=== PATIENT | female | born 1985 | race Caucasian/White ===

== ENCOUNTER 2016-12-22 16:19 | Outpatient (CLI) | payer MEDICAID ==
[2016-12-22 17:01] LABS: APPEARANCE,URINE SLIGHTLY-CLOUDY; BILIRUBIN,URINE NEGATIVE (NEGATIVE); GLUCOSE, URINE NEGATIVE (NEGATIVE); KETONES,URINE NEGATIVE (NEGATIVE); LEUKOCYTE ESTERASE,URINE TRACE (NEGATIVE); NITRITE,URINE NEGATIVE (NEGATIVE); PROTEIN,URINE NEGATIVE (NEGATIVE); URINE SPECIFIC GRAVITY 1.015; UROBILINOGEN,URINE NEGATIVE mg/dL (<2.0)
[2016-12-22 17:14] LABS: URINE BARBITURATES SCREEN NEGATIVE; URINE METHADONE SCREEN NEGATIVE; URINE OPIATES LOW NEGATIVE; URINE PHENCYCLIDINE SCREEN NEGATIVE
[2016-12-22] MEDS ORDERED: RINGERS SOLUTION,LACTATED 1,000 ML IV ONE (17:35)
--- NOTE | 2016-12-22 21:14 | L&D Discharge Summary ---
OB Discharge Summary Datetime Report Generated by CPN: 12/22/2016 21:14 DISCHARGE DIAGNOSIS Diagnosis/Symptoms: Round Ligament Syndrome Number of Babies in Womb: 1 Parity: 0 DIET/ACTIVITY/RESTRICTIONS Diet: Regular Activity: Normal Activity TEACHING/INSTRUCTIONS/REFERRALS Instructions Given To: Patient/family Instructions Understood: Patient Verbalized Understanding; Support Person Verbalized Understanding Referrals: None Educational Materials- Other: round ligament pain DISCHARGE INFORMATION Discharged AMA: No Discharge Date/Time: 12/22/2016 18:12 Discharged To: Home Discharge Provider Name: Dr Montague Accompanied By: family Discharge Method: Ambulatory Condition: Stable FOLLOW UP INFORMATION Follow Up With: [facility] Follow Up On: As Scheduled Follow Up Phone Number: [facility] -
--- NOTE | 2016-12-23 22:50 | Antepartum Discharge Summary ---
Antepartum DC Datetime Report Generated by CPN: 12/23/2016 22:45 DIET/ACTIVITY/RESTRICTIONS Diet: Regular (12/22/2016 18:11:Cate Elmore RN) Activity: Normal Activity (12/22/2016 18:11:Cate Elmore RN) TEACHING/INSTRUCTIONS/REFERRALS Instructions Given To: Patient/family (12/22/2016 18:11:Cate Elmore RN) Instructions Understood: Patient Verbalized Understanding; Support Person Verbalized Understanding (12/22/2016 18:11:Cate Elmore RN) Referrals: None (12/22/2016 18:11:Cate Elmore RN) Educational Materials- Other: round ligament pain (12/22/2016 18:11:Cate Elmore RN) DISCHARGE INFORMATION Discharged AMA: No (12/22/2016 18:11:Cate Elmore RN) Discharge Date/Time: 12/22/2016 18:12 (12/22/2016 18:11:Cate Elmore RN) Discharged To: Home (12/22/2016 18:11:Cate Elmore RN) Discharge Provider Name: Dr Montague (12/22/2016 18:11:Cate Elmore RN) Accompanied By: family (12/22/2016 18:11:Cate Elmore RN) Discharge Method: Ambulatory (12/22/2016 18:11:Ctae Elmore RN) Condition: Stable (12/22/2016 18:11:Cate Elmore RN) FOLLOW UP INFORMATION Follow Up With: [facility] (12/22/2016 18:11:Cate Elmore RN) Follow Up On: As Scheduled (12/22/2016 18:11:Cate Elmore RN) Follow Up Phone Number: [facility] - (12/22/2016 18:11:Cate Elmore RN)
--- NOTE | 2016-12-23 22:50 | L&D General Admission ---
General Admit Datetime Report Generated by CPN: 12/23/2016 22:45 INFORMATION Patient Age: 31 (12/22/2016 16:19:QS system process) EDC: 05/07/2017 00:00 (12/22/2016 16:25:Cate Elmore RN) : 1 (12/22/2016 16:25:Cate Elmore RN) Para: 0 (12/22/2016 16:25:Cate Elmore RN) Term: 0 (12/22/2016 16:25:Cate Elmore RN) : 0 (12/22/2016 16:25:Cate Elmore RN) Spontaneous Abortions: 0 (12/22/2016 16:25:Cate Elmore RN) Induced Abortions: 0 (12/22/2016 16:25:Cate Elmore RN) Livin (12/22/2016 16:25:Cate Elmore RN) Cesareans: 0 (12/22/2016 16:25:Cate Elmore RN) VBACs: 0 (12/22/2016 16:25:Cate Elmore RN) Ectopic: 0 (12/22/2016 16:25:Cate Elmore RN) Multiple Births: 0 (12/22/2016 16:25:Cate Elmore RN) Baby, Number in Womb: 1 (12/22/2016 16:25:Cate Elmore RN) CARE Primary In Flight Refueling Manager: [facility] (12/22/2016 16:25:Cate Elmore RN) Prepregnancy Weight (lb): 126 (12/22/2016 16:25:Cate Emlore RN) Prepregnancy Weight (kg): 57.3 (12/22/2016 16:25:QS system process) Height (in): 66 (12/22/2016 16:50:QS system process) ALLERGIES Medication Allergy: Yes (12/22/2016 16:25:Cate Elmore RN) Medication Allergies: ciprofloxacin HCl (12/22/2016); Penicillins (12/22/2016); ciprofloxacin (12/22/2016); amoxicillin (12/22/2016) (12/22/2016 16:47:QS system process) Medication Allergies: ciprofloxacin HCl (06/18/2014); Penicillins (06/18/2014); ciprofloxacin (06/18/2014); amoxicillin (06/18/2014) (12/22/2016 16:19:QS system process) Latex Allergy: No Latex Allergies (12/22/2016 16:25:Cate Elmore RN) COMMUNICATION Primary Language: Spanish (12/22/2016 16:25:Cate Elmore RN) Medical Tx Preferred Language: Spanish (12/22/2016 16:25:Cate Elmore RN) DEMOGRAPHICS Address: [address] [place] [id number] (12/22/2016 16:19:QS system process) Zipcode: [address] (12/22/2016 16:19:QS system process) Home (12/22/2016 16:19:QS system process) SSN: [id number] (12/22/2016 16:19:QS system process) Next of Kin Name: JULIÁN SKINNER (12/22/2016 16:19:QS system process) Next of Kin (12/22/2016 16:19:QS system process) Next of Kin Relationship: SPO (12/22/2016 16:19:QS system process) Date of : 1985 (12/22/2016 16:19:QS system process) Marital Status: (12/22/2016 16:19:QS system process) Sex: Female (12/22/2016 16:19:QS system process) Race: (12/22/2016 16:19:QS system process) Ethnicity: Non- or (12/22/2016 16:19:QS system process) Bahai: None (12/22/2016 16:19:QS system process)
--- NOTE | 2016-12-23 22:50 | L&D Discharge Summary ---
OB Discharge Summary Datetime Report Generated by CPN: 12/23/2016 22:45 DISCHARGE DIAGNOSIS Diagnosis/Symptoms: Round Ligament Syndrome Gestation: 20.4 Number of Babies in Womb: 1 Parity: 0 DIET/ACTIVITY/RESTRICTIONS Diet: Regular Activity: Normal Activity TEACHING/INSTRUCTIONS/REFERRALS Instructions Given To: Patient/family Instructions Understood: Patient Verbalized Understanding; Support Person Verbalized Understanding Referrals: None Educational Materials- Other: round ligament pain DISCHARGE INFORMATION Discharged AMA: No Discharge Date/Time: 12/22/2016 18:12 Discharged To: Home Discharge Provider Name: Eddi Accompanied By: family Discharge Method: Ambulatory Condition: Stable FOLLOW UP INFORMATION Follow Up With: [facility] Follow Up On: As Scheduled Follow Up Phone Number: [facility] -
--- NOTE | 2016-12-24 04:50 | L&D Discharge Summary ---
OB Discharge Summary Datetime Report Generated by CPN: 12/24/2016 04:46 DISCHARGE DIAGNOSIS Diagnosis/Symptoms: Round Ligament Syndrome Gestation: 20.4 Number of Babies in Womb: 1 Parity: 0 DIET/ACTIVITY/RESTRICTIONS Diet: Regular Activity: Normal Activity TEACHING/INSTRUCTIONS/REFERRALS Instructions Given To: Patient/family Instructions Understood: Patient Verbalized Understanding; Support Person Verbalized Understanding Referrals: None Educational Materials- Other: round ligament pain DISCHARGE INFORMATION Discharged AMA: No Discharge Date/Time: 12/22/2016 18:12 Discharged To: Home Discharge Provider Name: Eddi Accompanied By: family Discharge Method: Ambulatory Condition: Stable FOLLOW UP INFORMATION Follow Up With: [facility] Follow Up On: As Scheduled Follow Up Phone Number: [facility] -
--- NOTE | 2016-12-24 04:50 | L&D General Admission ---
General Admit Datetime Report Generated by CPN: 12/24/2016 04:46 INFORMATION Patient Age: 31 (12/22/2016 16:19:QS system process) EDC: 05/07/2017 00:00 (12/22/2016 16:25:Cate Elmore RN) : 1 (12/22/2016 16:25:Cate Elmore RN) Para: 0 (12/22/2016 16:25:Cate Elmore RN) Term: 0 (12/22/2016 16:25:Cate Elmore RN) : 0 (12/22/2016 16:25:Cate Elmore RN) Spontaneous Abortions: 0 (12/22/2016 16:25:Cate Elmore RN) Induced Abortions: 0 (12/22/2016 16:25:Cate Elmore RN) Livin (12/22/2016 16:25:Cate Elmore RN) Cesareans: 0 (12/22/2016 16:25:Cate Elmore RN) VBACs: 0 (12/22/2016 16:25:Cate Elmore RN) Ectopic: 0 (12/22/2016 16:25:Cate Elmore RN) Multiple Births: 0 (12/22/2016 16:25:Cate Elmore RN) Baby, Number in Womb: 1 (12/22/2016 16:25:Cate Elmore RN) CARE Primary Die Try Out Worker Stamping: [facility] (12/22/2016 16:25:Cate Elmore RN) Prepregnancy Weight (lb): 126 (12/22/2016 16:25:Cate Elmore RN) Prepregnancy Weight (kg): 57.3 (12/22/2016 16:25:QS system process) Height (in): 66 (12/22/2016 16:50:QS system process) ALLERGIES Medication Allergy: Yes (12/22/2016 16:25:Cate Elmore RN) Medication Allergies: ciprofloxacin HCl (12/22/2016); Penicillins (12/22/2016); ciprofloxacin (12/22/2016); amoxicillin (12/22/2016) (12/22/2016 16:47:QS system process) Medication Allergies: ciprofloxacin HCl (06/18/2014); Penicillins (06/18/2014); ciprofloxacin (06/18/2014); amoxicillin (06/18/2014) (12/22/2016 16:19:QS system process) Latex Allergy: No Latex Allergies (12/22/2016 16:25:Cate Elmore RN) COMMUNICATION Primary Language: Guyanese (12/22/2016 16:25:Cate Elmore RN) Medical Tx Preferred Language: Guyanese (12/22/2016 16:25:Cate Elmore RN) DEMOGRAPHICS Address: [address] [place] [address] (12/22/2016 16:19:QS system process) Zipcode: [address] (12/22/2016 16:19:QS system process) Home (12/22/2016 16:19:QS system process) SSN: [id number] (12/22/2016 16:19:QS system process) Next of Kin Name: JULIÁN SKINNER (12/22/2016 16:19:QS system process) Next of Kin (12/22/2016 16:19:QS system process) Next of Kin Relationship: SPO (12/22/2016 16:19:QS system process) Date of : 1985 (12/22/2016 16:19:QS system process) Marital Status: (12/22/2016 16:19:QS system process) Sex: Female (12/22/2016 16:19:QS system process) Race: (12/22/2016 16:19:QS system process) Ethnicity: Non- or (12/22/2016 16:19:QS system process) Nondenominational: None (12/22/2016 16:19:QS system process)
--- NOTE | 2016-12-24 04:50 | Antepartum Discharge Summary ---
Antepartum DC Datetime Report Generated by CPN: 12/24/2016 04:46 DIET/ACTIVITY/RESTRICTIONS Diet: Regular (12/22/2016 18:11:Cate Elmore RN) Activity: Normal Activity (12/22/2016 18:11:Cate Elmore RN) TEACHING/INSTRUCTIONS/REFERRALS Instructions Given To: Patient/family (12/22/2016 18:11:Cate Elmore RN) Instructions Understood: Patient Verbalized Understanding; Support Person Verbalized Understanding (12/22/2016 18:11:Cate Elmore RN) Referrals: None (12/22/2016 18:11:Cate Elmore RN) Educational Materials- Other: round ligament pain (12/22/2016 18:11:Cate Elmore RN) DISCHARGE INFORMATION Discharged AMA: No (12/22/2016 18:11:Cate Elmore RN) Discharge Date/Time: 12/22/2016 18:12 (12/22/2016 18:11:Cate Elmore RN) Discharged To: Home (12/22/2016 18:11:Cate Elmore RN) Discharge Provider Name: Dr Montague (12/22/2016 18:11:Cate Elmore RN) Accompanied By: family (12/22/2016 18:11:Cate Elmore RN) Discharge Method: Ambulatory (12/22/2016 18:11:Cate Elmore RN) Condition: Stable (12/22/2016 18:11:Cate Elmore RN) FOLLOW UP INFORMATION Follow Up With: [facility] (12/22/2016 18:11:Cate Elmore RN) Follow Up On: As Scheduled (12/22/2016 18:11:Cate Elmore RN) Follow Up Phone Number: [facility] - (12/22/2016 18:11:Cate Elmore RN)
--- NOTE | 2016-12-24 10:50 | L&D Discharge Summary ---
OB Discharge Summary Datetime Report Generated by CPN: 12/24/2016 10:45 DISCHARGE DIAGNOSIS Diagnosis/Symptoms: Round Ligament Syndrome Gestation: 20.4 Number of Babies in Womb: 1 Parity: 0 DIET/ACTIVITY/RESTRICTIONS Diet: Regular Activity: Normal Activity TEACHING/INSTRUCTIONS/REFERRALS Instructions Given To: Patient/family Instructions Understood: Patient Verbalized Understanding; Support Person Verbalized Understanding Referrals: None Educational Materials- Other: round ligament pain DISCHARGE INFORMATION Discharged AMA: No Discharge Date/Time: 12/22/2016 18:12 Discharged To: Home Discharge Provider Name: Eddi Accompanied By: family Discharge Method: Ambulatory Condition: Stable FOLLOW UP INFORMATION Follow Up With: [facility] Follow Up On: As Scheduled Follow Up Phone Number: [facility] -
--- NOTE | 2016-12-24 10:50 | L&D Admission Assessment ---
LD ADM ASMT Datetime Report Generated by CPN: 12/24/2016 10:45 PATIENT ASSESSMENT Assessment Type: Triage (12/22/2016 17:26:Cate Elmore RN) WEIGHT Weight (lb): 125 (12/22/2016 16:50:QS system process) Weight (kg): 56.8 (12/22/2016 16:50:QS system process) Total Wt Gain (lb): -1 (12/22/2016 16:50:QS system process) Wt Gain (kg): -0.3 (12/22/2016 16:50:QS system process) PAIN Pain Scale: 3 (12/22/2016 17:26:Cate Elmore RN) Pain Presence: Constant (12/22/2016 17::Cate Elmore RN) Pain Type: Sharp (12/22/2016 17::Cate Elmore RN) Pain Location: Abdomen (12/22/2016 17::Cate Elmore RN) NEURO Level of Consciousness: Fully Conscious (12/22/2016 17:26:Cate Elmore RN) DTR's/Clonus: DTRs 2+; No Clonus (12/22/2016 17::Cate Elmore RN) Headache: Denies (12/22/2016 17::Cate Elmore RN) Dizziness: No (12/22/2016 17::Cate Elmore RN) Blurred Vision: No (12/22/2016 17:26:Cate Elmore RN) Extremity Numbness/Tingling : None (12/22/2016 17::Cate Elmore RN) Extremity Movement: Full Range of Motion (12/22/2016 17:26:Cate Elmore RN) CARDIOVASCULAR Nailbeds: [place] (12/22/2016 17:26:Cate Elmore RN) Capillary Refill: Less than 3 Seconds (12/22/2016 17:26:Cate Elmore RN) Facial Edema: None (12/22/2016:26:Cate Elmore RN) RESPIRATORY Respiratory Effort: Unlabored; Regular Rhythm; Equal Expansion (12/22/2016 17:26:Cate Elmore RN) Breath Sounds, Left: Clear and Equal (12/22/2016 17:26:Cate Elmore RN) Breath Sounds, Right: Clear and Equal (12/22/2016 17:26:Cate Elmore RN) Cough Productivity: None (12/22/2016:26:Cate Elmore RN) GASTROINTESTINAL Nausea/Vomiting: Denies (12/22/2016 17:26:Cate Elmore RN) Bowel Sounds: Normoactive; All Quadrants (12/22/2016 17:26:Cate Elmore RN) RUQ Epigastric Pain: Denies (12/22/2016 17:26:Cate Elmore RN) Bowel Patterns: Diarrhea (12/22/2016 17::Cate Elmore RN) GENITOURINARY Bladder: Nondistended (12/22/2016 17:26:Cate Elmore RN) Frequency of Urination: No (12/22/2016 17:26:Cate Elmore RN) Urination Burning: No (12/22/2016 17:26:Cate Elmore RN) CVA Tenderness: No (12/22/2016 17:26:Cate Elmore RN) Vaginal Bleeding: None (12/22/2016 17:26:Cate Elmore RN) Vaginal Discharge Color: N/A (12/22/2016 17::Cate Elmore RN) INTEGUMENTARY Skin Color: Normal for Race (12/22/2016 17:26:Cate Emlore RN) Skin Temperature: Warm (12/22/2016 17:26:Cate Elmore RN) Skin Moisture: Dry (12/22/2016 17:26:Cate Elmore RN) TONY SKIN ASSESSMENT Tony Scale Sensory Perception: No Impairment- Responds to verbal commands. Has no sensory deficit which would limit ability to feel or voice pain or discomfort (12/22/2016 17:26:Cate Elmore RN) Tony Scale Moisture: Rarely Moist- Skin is usually dry. Linen only requires changing at routine intervals (12/22/2016 17:26:Cate Elmore RN) Tony Scale Activity: Walks Frequently- Walks outside the room at least twice a day and inside room at least every 2 hours during the day. (12/22/2016 17:26:Cate Elmore RN) Tony Scale Mobility: No Limitations- Makes major and frequent changes in position without assistance (12/22/2016 17:26:Cate Elmore RN) Tony Scale Nutrition: Excellent- Eats most of every meal. Never refuses a meal. Usually eats a total of 4 or more servings of meat and dairy products. Occasionally eats between meals. Does not require supplementation (12/22/2016 17:26:Cate Elmore RN) Tony Scale Friction and Shear: No Apparent Problem- Moves in bed and in chair independently and has sufficient muscle strength to lift up completely during move. Maintains good position in bed or chair at all times (12/22/2016 17:26:Cate Elmore RN) Tony Scale Total: 23 (12/22/2016 17:26:QS system process) Tony Scale Risk: No Risk of Pressure Ulcer Noted at this Time (12/22/2016 17:26:QS system process) SUPPORT Family Support: Family supportive (12/22/2016 17:26:Cate Elmore RN) Emotional State: Calm/Relaxed (12/22/2016 17::Cate Elmore RN) SAFETY Call Choudhary Within Reach: Yes (12/22/2016 17:26:Cate Elmore RN) Side Rails Up: Yes (12/22/2016 17::Cate Elmore RN) Bed Wheels Locked: Yes (12/22/2016 17:26:Cate Elmore RN) Arm Bands Present: Yes (12/22/2016 17::Cate Elmore RN) FALL SCREEN Fall Risk History of Falling: (0) No (12/22/2016 17:26:Cate Elmore RN) Fall Risk Secondary Diagnosis: (0) No (12/22/2016 17:26:Cate Elmore RN) Fall Risk Ambulatory Aid: (0) None/Bedrest/Wheelchair/Nurse Assist (12/22/2016 17:26:Cate Elmore RN) Fall Risk IV Therapy: (0) No (12/22/2016 17:26:Cate Elmore RN) Fall Risk Gait: (0) Normal/Bedrest/Immobile (12/22/2016 17:26:Cate Elmore RN) Fall Risk Mental Status: (0) Oriented to Own Ability (12/22/2016 17:26:Cate Elmore RN) Fall Risk Score: 0 (12/22/2016 17:26:QS system process) Fall Risk Score Definition: No Risk: No action required (12/22/2016 17:26:QS system process)
--- NOTE | 2016-12-24 10:50 | Antepartum Discharge Summary ---
Antepartum DC Datetime Report Generated by CPN: 12/24/2016 10:45 DIET/ACTIVITY/RESTRICTIONS Diet: Regular (12/22/2016 18:11:Cate Elmore RN) Activity: Normal Activity (12/22/2016 18:11:Cate Elmore RN) TEACHING/INSTRUCTIONS/REFERRALS Instructions Given To: Patient/family (12/22/2016 18:11:Cate Elmore RN) Instructions Understood: Patient Verbalized Understanding; Support Person Verbalized Understanding (12/22/2016 18:11:Cate Elmore RN) Referrals: None (12/22/2016 18:11:Cate Elmore RN) Educational Materials- Other: round ligament pain (12/22/2016 18:11:Cate Elmore RN) DISCHARGE INFORMATION Discharged AMA: No (12/22/2016 18:11:Cate Elmore RN) Discharge Date/Time: 12/22/2016 18:12 (12/22/2016 18:11:Cate Elmore RN) Discharged To: Home (12/22/2016 18:11:Cate Elmore RN) Discharge Provider Name: Dr Montague (12/22/2016 18:11:Cate Elmore RN) Accompanied By: family (12/22/2016 18:11:Cate Elmore RN) Discharge Method: Ambulatory (12/22/2016 18:11:Cate Elmore RN) Condition: Stable (12/22/2016 18:11:Cate Elmore RN) FOLLOW UP INFORMATION Follow Up With: [facility] (12/22/2016 18:11:Cate Elmore RN) Follow Up On: As Scheduled (12/22/2016 18:11:Cate Elmore RN) Follow Up Phone Number: [facility] - (12/22/2016 18:11:Cate Elmore RN)
--- NOTE | 2016-12-24 10:50 | L&D General Admission ---
General Admit Datetime Report Generated by CPN: 12/24/2016 10:45 INFORMATION Patient Age: 31 (12/22/2016 16:19:QS system process) EDC: 05/07/2017 00:00 (12/22/2016 16:25:Cate Elmore RN) : 1 (12/22/2016 16:25:Cate Elmore RN) Para: 0 (12/22/2016 16:25:Cate Elmore RN) Term: 0 (12/22/2016 16:25:Cate Elmore RN) : 0 (12/22/2016 16:25:Cate Elmore RN) Spontaneous Abortions: 0 (12/22/2016 16:25:Cate Elmore RN) Induced Abortions: 0 (12/22/2016 16:25:Cate Elmore RN) Livin (12/22/2016 16:25:Cate Elmore RN) Cesareans: 0 (12/22/2016 16:25:Cate Elmore RN) VBACs: 0 (12/22/2016 16:25:Cate Elmore RN) Ectopic: 0 (12/22/2016 16:25:Cate Elmore RN) Multiple Births: 0 (12/22/2016 16:25:Cate Elomre RN) Baby, Number in Womb: 1 (12/22/2016 16:25:Cate Elmore RN) CARE Primary Mortgage Or Loan Underwriter: [facility] (12/22/2016 16:25:Cate Elmore RN) Prepregnancy Weight (lb): 126 (12/22/2016 16:25:Cate Elmore RN) Prepregnancy Weight (kg): 57.3 (12/22/2016 16:25:QS system process) Height (in): 66 (12/22/2016 16:50:QS system process) ALLERGIES Medication Allergy: Yes (12/22/2016 16:25:Cate Elmore RN) Medication Allergies: ciprofloxacin HCl (12/22/2016); Penicillins (12/22/2016); ciprofloxacin (12/22/2016); amoxicillin (12/22/2016) (12/22/2016 16:47:QS system process) Medication Allergies: ciprofloxacin HCl (06/18/2014); Penicillins (06/18/2014); ciprofloxacin (06/18/2014); amoxicillin (06/18/2014) (12/22/2016 16:19:QS system process) Latex Allergy: No Latex Allergies (12/22/2016 16:25:Cate Elmore RN) COMMUNICATION Primary Language: [place] Islander (12/22/2016 16:25:Cate Elmore RN) Medical Tx Preferred Language: [place] Islander (12/22/2016 16:25:Cate Elmore RN) DEMOGRAPHICS Address: [address] [place] [address] (12/22/2016 16:19:QS system process) Zipcode: [address] (12/22/2016 16:19:QS system process) Home (12/22/2016 16:19:QS system process) SSN: [id number] (12/22/2016 16:19:QS system process) Next of Kin Name: JULIÁN SKINNER (12/22/2016 16:19:QS system process) Next of Kin (12/22/2016 16:19:QS system process) Next of Kin Relationship: SPO (12/22/2016 16:19:QS system process) Date of : 1985 (12/22/2016 16:19:QS system process) Marital Status: (12/22/2016 16:19:QS system process) Sex: Female (12/22/2016 16:19:QS system process) Race: (12/22/2016 16:19:QS system process) Ethnicity: Non- or (12/22/2016 16:19:QS system process) Scientologist: None (12/22/2016 16:19:QS system process)
== END 2016-12-22 18:12 | disposition home or self-care (01) ==
LOC: LC 16:19
PROVIDERS: ATTEND Specialist
PROC: 4A1HXCZ Monitoring of Products of Conception, Cardiac Rate, External Approach (ICD-10-PCS; principal; 2016-12-22)
DX: O26.892 Other specified pregnancy related conditions, second trimester (principal); R10.2 Pelvic and perineal pain; Z3A.20 20 weeks gestation of pregnancy
CPT/HCPCS: 80307; 81001

== ENCOUNTER 2017-02-13 15:41 | Outpatient (CLI) | payer OTHER, MEDICAID ==
[2017-02-13 16:27] LABS: APPEARANCE,URINE SLIGHTLY-CLOUDY; BILIRUBIN,URINE NEGATIVE (NEGATIVE); GLUCOSE, URINE NEGATIVE (NEGATIVE); KETONES,URINE 80 mg/dL (NEGATIVE); LEUKOCYTE ESTERASE,URINE SMALL (NEGATIVE); NITRITE,URINE NEGATIVE (NEGATIVE); PROTEIN,URINE NEGATIVE (NEGATIVE); URINE SPECIFIC GRAVITY 1.014; UROBILINOGEN,URINE NEGATIVE mg/dL (<2.0)
[2017-02-13 16:31] LABS: AMNISURE (ROM) NEGATIVE (NEGATIVE)
[2017-02-13 16:43] LABS: URINE BARBITURATES SCREEN NEGATIVE; URINE METHADONE SCREEN NEGATIVE; URINE OPIATES LOW NEGATIVE; URINE PHENCYCLIDINE SCREEN NEGATIVE
== END 2017-02-13 17:14 | disposition home or self-care (01) ==
LOC: LC 15:41
PROVIDERS: ATTEND Specialist
PROC: 4A1HXCZ Monitoring of Products of Conception, Cardiac Rate, External Approach (ICD-10-PCS; principal; 2017-02-13)
DX: Z34.93 Encounter for supervision of normal pregnancy, unspecified, third trimester (principal); Z36 Encounter for antenatal screening of mother; Z3A.36 36 weeks gestation of pregnancy
CPT/HCPCS: 80307; 81001; 84112

== ENCOUNTER 2017-03-07 12:58 | Outpatient (CLI) | payer OTHER, MEDICAID ==
[2017-03-07 13:55] LABS: APPEARANCE,URINE CLOUDY; BILIRUBIN,URINE NEGATIVE (NEGATIVE); GLUCOSE, URINE >=500 mg/dL (NEGATIVE); KETONES,URINE NEGATIVE (NEGATIVE); LEUKOCYTE ESTERASE,URINE NEGATIVE (NEGATIVE); NITRITE,URINE NEGATIVE (NEGATIVE); PROTEIN,URINE NEGATIVE (NEGATIVE); URINE SPECIFIC GRAVITY 1.011; UROBILINOGEN,URINE NEGATIVE mg/dL (<2.0)
[2017-03-07 14:15] LABS: URINE BARBITURATES SCREEN NEGATIVE; URINE METHADONE SCREEN NEGATIVE; URINE OPIATES LOW NEGATIVE; URINE PHENCYCLIDINE SCREEN NEGATIVE
[2017-03-07 15:01] LABS: APPEARANCE,URINE CLEAR; BILIRUBIN,URINE NEGATIVE (NEGATIVE); GLUCOSE, URINE NEGATIVE (NEGATIVE); KETONES,URINE NEGATIVE (NEGATIVE); LEUKOCYTE ESTERASE,URINE NEGATIVE (NEGATIVE); NITRITE,URINE NEGATIVE (NEGATIVE); PROTEIN,URINE NEGATIVE (NEGATIVE); URINE SPECIFIC GRAVITY 1.001; UROBILINOGEN,URINE NEGATIVE mg/dL (<2.0)
--- NOTE | 2017-03-07 15:06 | RADIOLOGY REPORT (SQ) ---
EXAM DESCRIPTION: U/S OB LIMITED COMPLETED DATE/TIME: 03/07/2017 2:50 pm REASON FOR STUDY: CL for abd cramping COMPARISON: None. TECHNIQUE: Limited transvaginal grayscale ultrasound for evaluation of specific requested obstetrica l parameters. LIMITATIONS: None. FINDINGS: CERVICAL LENGTH: 4.3 cm Closed. RADHA: 22.9 cm. With vernix FHR: 125 beats per minute. PRESENTATION: Cephalic. OTHER: No other significant findings. IMPRESSION: LIMITED OBSTETRICAL ULTRASOUND WITH MEASURED PARAMETERS DELINEATED ABOVE. Trimester of : Third trimester - 28 weeks to delivery. TECHNICAL DOCUMENTATION: JOB ID: [id number] [employer]- All Rights Reserved
[2017-03-07 15:42] LABS: ABSOLUTE EOSINOPHILS # (AUTO) 0.1 10^3/uL (0.0-0.6); ABSOLUTE LYMPHOCYTES (AUTO) 2.6 10^3/uL (0.5-4.7); ABSOLUTE MONOCYTES (AUTO) 1.6 10^3/uL (0.1-1.4); ABSOLUTE NEUT (AUTO) 10.8 10^3/uL (1.7-8.2); BASOPHILS % (AUTO) 0.3 % (0-2); EOSINOPHILS % (AUTO) 0.7 % (0-6); HEMATOCRIT 39.4 % (36.0-47.0); HEMOGLOBIN 13.3 g/dL (12.0-15.5); HGB HCT DIFFERENCE 0.5; LYMPHOCYTES % (AUTO) 17.4 % (13-45); MEAN CORPUSCULAR HEMOGLOBIN 30.2 pg (27.0-33.4); MEAN CORPUSCULAR HGB CONC 33.8 g/dL (32.0-36.0); MEAN CORPUSCULAR VOLUME 89 fl (80-97); MONOCYTES % (AUTO) 10.5 % (3-13); RED BLOOD COUNT 4.42 10^6/uL (3.72-5.28); RED CELL DISTRIBUTION WIDTH 12.3 % (11.5-14.0); SEGMENTED NEUTROPHILS % (AUTO) 71.1 % (42-78); WHITE BLOOD COUNT 15.1 10^3/uL (4.0-10.5)
== END 2017-03-07 15:51 | disposition home or self-care (01) ==
LOC: LC 12:58
PROVIDERS: ATTEND Student in an Organized Health Care Education/Training Program
PROC: 4A1HXCZ Monitoring of Products of Conception, Cardiac Rate, External Approach (ICD-10-PCS; principal; 2017-03-07)
DX: O26.893 Other specified pregnancy related conditions, third trimester (principal); R10.9 Unspecified abdominal pain; Z3A.31 31 weeks gestation of pregnancy
CPT/HCPCS: 36415; 76815; 80307; 81001; 81005; 85025; 87086

== ENCOUNTER 2017-04-26 15:13 | Emergency (ER) | payer OTHER, MEDICAID ==
--- NOTE | 2017-04-26 16:02 | ER Document Report ---
ED Medical Screen (RME) - General Chief Complaint: Shortness Of Breath Stated Complaint: SHORTNESS OF BREATH Time Seen by Provider: 04/26/17 15:59 Mode of Arrival: Wheelchair Information source: Patient Notes: Patient presents complaining of shortness of breath and upper back pain that started yesterday. Patient describes pain as sharp in nature. Patient is currently 38 weeks . Patient does report that she has had contractions for the past 10 weeks. Patient was sent here by her ADJUSTER ARBITRATOR. Patient states that after she gets evaluated in the emergency department she is then to go to the labor and delivery unit for evaluation due to a low heart rate in the baby that was measured at 110 in the office. hx: Seizures TRAVEL OUTSIDE OF THE [place] IN LAST 30 DAYS: No - Related Data Allergies/Adverse Reactions: amoxicillin [Amoxicillin] Allergy (Verified 04/26/17 15:59) ciprofloxacin [From Cipro] Allergy (Verified 04/26/17 15:59) ciprofloxacin HCl [From Cipro] Allergy (Verified 04/26/17 15:59) clavulanic acid [From Augmentin] Allergy (Verified 04/26/17 15:59) Penicillins Allergy (Verified 04/26/17 15:59) Past Medical History Neurological Medical History: Reports: Hx Seizures Renal/ Medical History: Denies: Hx Peritoneal Dialysis Musculoskeltal Medical History: Reports Hx Musculoskeletal Trauma Past Surgical History: Reports: Hx Appendectomy, Hx Breast Surgery - augmentation, Hx Orthopedic Surgery - elbow surgery - Immunizations Immunizations up to date: Yes Hx Diphtheria, Pertussis, Tetanus Vaccination: Yes Physical Exam - Vital signs Vitals: Temp Pulse Resp BP Pulse Ox 98.6 F 85 21 H 130/81 H 98 04/26/17 15:35 04/26/17 15:35 04/26/17 15:35 04/26/17 15:35 04/26/17 15:35 - Respiratory Respiratory status: No respiratory distress Chest status: Pain with deep breathing Breath sounds: Normal Course - Re-evaluation Re-evalutation: 04/26/17 16:[address] shrestha regarding pt presentation and evaluation - Vital Signs Vital signs: Temp Pulse Resp BP Pulse Ox 98.6 F 85 21 H 130/81 H 98 04/26/17 15:35 04/26/17 15:35 04/26/17 15:35 04/26/17 15:35 04/26/17 15:35
--- NOTE | 2017-04-26 16:34 | RADIOLOGY REPORT (SQ) ---
EXAM DESCRIPTION: CHEST PA/LAT COMPLETED DATE/TIME: 04/26/2017 4:17 pm REASON FOR STUDY: SOB COMPARISON: None. EXAM PARAMETERS: NUMBER OF VIEWS: two views TECHNIQUE: Digital Frontal and Lateral radiographic views of the chest acquired. RADIATION DOSE: NA LIMITATIONS: none FINDINGS: LUNGS AND PLEURA: No opacities, masses or pneumothorax. No pleural effusion. MEDIASTINUM AND HILAR STRUCTURES: No masses or contour abnormalities. HEART AND VASCULAR STRUCTURES: Heart normal size. No evidence for failure. BONES: No acute findings. HARDWARE: None in the chest. OTHER: No other significant finding. IMPRESSION: NO SIGNIFICANT RADIOGRAPHIC FINDING IN THE CHEST. TECHNICAL DOCUMENTATION: JOB ID: [id number] [employer]- All Rights Reserved
[2017-04-26 16:49] LABS: ABSOLUTE BASOPHILS # (AUTO) 0.1 10^3/uL (0.0-0.2); ABSOLUTE EOSINOPHILS # (AUTO) 0.1 10^3/uL (0.0-0.6); ABSOLUTE LYMPHOCYTES (AUTO) 2.9 10^3/uL (0.5-4.7); ABSOLUTE MONOCYTES (AUTO) 1.1 10^3/uL (0.1-1.4); ABSOLUTE NEUT (AUTO) 6.6 10^3/uL (1.7-8.2); BASOPHILS % (AUTO) 0.8 % (0-2); EOSINOPHILS % (AUTO) 0.5 % (0-6); HEMOGLOBIN 15.3 g/dL (12.0-15.5); HGB HCT DIFFERENCE 0.9; LYMPHOCYTES % (AUTO) 27.1 % (13-45); MEAN CORPUSCULAR HEMOGLOBIN 30.9 pg (27.0-33.4); MEAN CORPUSCULAR VOLUME 91 fl (80-97); MONOCYTES % (AUTO) 10.6 % (3-13); RED BLOOD COUNT 4.96 10^6/uL (3.72-5.28); WHITE BLOOD COUNT 10.9 10^3/uL (4.0-10.5)
[2017-04-26 17:03] LABS: ALANINE AMINOTRANSFERASE 30 U/L (9-52); ALBUMIN 3.5 g/dL (3.5-5.0); ALKALINE PHOSPHATASE 173 U/L (38-126); ANION GAP 9 (5-19); ASPARTATE AMINO TRANSFERASE 28 U/L (14-36); BILIRUBIN,DIRECT 0.3 mg/dL (0.0-0.4); BILIRUBIN,TOTAL 0.7 mg/dL (0.2-1.3); BLOOD UREA NITROGEN 13 mg/dL (7-20); CARBON DIOXIDE 25 mmol/L (22-30); CHLORIDE 100 mmol/L (98-107); CREATININE RESULT 0.81 mg/dL (0.52-1.25); GLUCOSE 80 mg/dL (75-110); LIPASE 42.2 U/L (23-300); POTASSIUM 4.2 mmol/L (3.6-5.0); SODIUM 133.8 mmol/L (137-145); TOTAL PROTEIN 6.7 g/dL (6.3-8.2)
[2017-04-26 17:09] LABS: APPEARANCE,URINE CLOUDY; BILIRUBIN,URINE NEGATIVE (NEGATIVE); GLUCOSE, URINE NEGATIVE (NEGATIVE); KETONES,URINE NEGATIVE (NEGATIVE); LEUKOCYTE ESTERASE,URINE LARGE (NEGATIVE); NITRITE,URINE NEGATIVE (NEGATIVE); PROTEIN,URINE 30 mg/dL (NEGATIVE); URINE SPECIFIC GRAVITY 1.017; UROBILINOGEN,URINE NEGATIVE mg/dL (<2.0)
--- NOTE | 2017-04-26 19:08 | ER Document Report ---
ED Respiratory Problem - General Chief Complaint: Shortness Of Breath Stated Complaint: SHORTNESS OF BREATH Time Seen by Provider: 04/26/17 15:59 Mode of Arrival: Wheelchair Notes: 31-year-old female, 38 weeks , presents with 1 day of sudden onset of shortness of breath. She saw her OB this morning was sent to the ER for further evaluation and treatment. After evaluation in the emergency room for her shortness of breath, patient is to be transferred to the labor floor because of a heart rate of 110 while at the OB earlier today. Patient denies nausea, vomiting, chest pain, cough, hemoptysis, back pain, leakage of fluids or vaginal bleeding. TRAVEL OUTSIDE OF THE [place] IN LAST 30 DAYS: No - Related Data Allergies/Adverse Reactions: amoxicillin [Amoxicillin] Allergy (Verified 04/26/17 15:59) ciprofloxacin [From Cipro] Allergy (Verified 04/26/17 15:59) ciprofloxacin HCl [From Cipro] Allergy (Verified 04/26/17 15:59) clavulanic acid [From Augmentin] Allergy (Verified 04/26/17 15:59) Penicillins Allergy (Verified 04/26/17 15:59) Past Medical History - General Information source: Patient - Social History Smoking Status: Unknown if Ever Smoked Chew tobacco use (# tins/day): No Frequency of alcohol use: None Drug Abuse: None Family History: Reviewed & Not Pertinent Neurological Medical History: Reports: Hx Seizures Renal/ Medical History: Denies: Hx Peritoneal Dialysis Musculoskeltal Medical History: Reports Hx Musculoskeletal Trauma Past Surgical History: Reports: Hx Appendectomy, Hx Breast Surgery - augmentation, Hx Orthopedic Surgery - elbow surgery - Immunizations Immunizations up to date: Yes Hx Diphtheria, Pertussis, Tetanus Vaccination: Yes Review of Systems - Review of Systems Notes: REVIEW OF SYSTEMS: CONSTITUTIONAL: -fevers, -chills EENT: -eye pain, -difficulty swallowing, -nasal congestion CARDIOVASCULAR:-chest pain, -syncope. RESPIRATORY: -cough, +SOB GASTROINTESTINAL: -abdominal pain, - nausea, -vomiting, -diarrhea GENITOURINARY: -dysuria, -hematuria MUSCULOSKELETAL: -back pain, -neck pain SKIN: -rash or skin lesions. HEMATOLOGIC: -easy bruising or bleeding. LYMPHATIC: -swollen, enlarged glands. NEUROLOGICAL: -altered mental status or loss of consciousness, -headache, - neurologic symptoms PSYCHIATRIC: -anxiety, -depression. ALL OTHER SYSTEMS REVIEWED AND NEGATIVE. Physical Exam - Vital signs Vitals: Temp Pulse Resp BP Pulse Ox 98.6 F 85 21 H 130/81 H 98 04/26/17 15:35 04/26/17 15:35 04/26/17 15:35 04/26/17 15:35 04/26/17 15:35 - Notes Notes: PHYSICAL EXAMINATION: GENERAL: Well-appearing, well-nourished and in no acute distress. HEAD: Atraumatic, normocephalic. EYES: Pupils equal round and reactive to light, extraocular movements intact, sclera anicteric, conjunctiva are normal. ENT: nares patent, oropharynx clear without exudates. Moist mucous membranes. NECK: Normal range of motion, supple without lymphadenopathy LUNGS: Mild tachypnea. Breath sounds clear to auscultation bilaterally and equal. No wheezes rales or rhonchi. HEART: Regular rate and rhythm without murmurs ABDOMEN: Soft, nontender, gravid uterus, normoactive bowel sounds. No guarding , no rebound. No masses appreciated. EXTREMITIES: Normal range of motion, no pitting or edema. No cyanosis. NEUROLOGICAL: Cranial nerves grossly intact. Normal speech, normal gait. Normal sensory and motor exams. PSYCH: Normal mood, normal affect. SKIN: Warm, Dry, normal turgor, no rashes or lesions noted. Course - Re-evaluation Re-evalutation: Patient mildly tachypneic and . D-dimer is elevated and CTA does not show evidence of PE. Shortness of breath may be related to the increased uterus pushing on her diaphragm. Other labs are unremarkable. Patient discharged while satting 100% on ambulation and will be going to the labor floor for further evaluation of the fetus. - Vital Signs Vital signs: Temp Pulse Resp BP Pulse Ox 98.6 F 65 13 127/87 H 100 04/26/17 21:36 04/26/17 18:50 04/26/17 20:02 04/26/17 20:02 04/26/17 20:02 - Laboratory Result Diagrams: 04/26/17 19:25 04/26/17 19:25 Laboratory results interpreted by me: 04/26/17 04/26/17 04/26/17 16:30 16:30 16:30 WBC 10.9 H D-Dimer Sodium 133.8 L Alkaline Phosphatase 173 H Albumin Urine Protein 30 H Ur Leukocyte Esterase LARGE H Urine Ascorbic Acid 40 H 04/26/17 04/26/17 19:25 19:25 WBC D-Dimer 0.75 H Sodium 135.9 L Alkaline Phosphatase 176 H Albumin 3.3 L Urine Protein Ur Leukocyte Esterase Urine Ascorbic Acid - Diagnostic Test Radiology reviewed: Image reviewed, Reports reviewed Radiology results interpreted by me: CTA Chest: NAD Discharge - Discharge Clinical Impression: Dyspnea Qualifiers: Dyspnea type: shortness of breath Qualified Code(s): R06.02 - Shortness of breath Condition: Stable Disposition: LABOR CHECK Additional Instructions: You do not have evidence of a pulmonary embolism today. You may have an early UTI, so take the full course of Macrobid. Uou are being transferred to the labor floor for further evaluation. SHORTNESS OF BREATH OR DYSPNEA: You were evaluated for shortness of breath, or dyspnea. Dyspnea has many causes, and some are more serious than others. Sometimes it's impossible to diagnose the cause of dyspnea with the tests that are available on an emergency basis. Based on our evaluation today, you do not need hospitalization now. We found no evidence of pneumonia, collapsed lung, blood clots in the lung, tumors , or heart failure. Causes of non-specific dyspnea can include asthma or bronchospasm, hyperventilation, emotional distress, heart disease, emphysema, fibrosis of the lung, and stiffness of the chest wall. In healthy individuals with a single episode, it's sometimes reasonable to do nothing but wait to see if the problem occurs again. Additional tests used to evaluate dyspnea can include cardiac stress testing, echocardiography, pulmonary function testing, CAT scan of the chest, bronchoscopy or pulmonary biopsy. Return if shortness of breath persists or worsens, or if you develop chest pain, fever, cough, confusion, or fainting. NORMAL EXAM AND WORKUP: At this time, your examination and workup show no significant abnormality. No significant abnormal physical findings were noted. All laboratory, EKG, and imaging (x-ray, CT scans, ultrasound) studies that were ordered show no significant abnormality. Although your examination and all studies that were ordered showed no significant abnormal finding, there are no examinations and no studies that are 100% accurate. There is always the possibility that some abnormality could exist and not be detected with physical examination or within the limits and capabilities of laboratory and other studies. You should return or follow up as you were instructed on your visit today for further evaluation if your symptoms do not resolve. FOLLOW-UP CARE: If you have been referred to a physician for follow-up care, call the physician s office for an appointment as you were instructed or within the next two days. If you experience worsening or a significant change in your symptoms, notify the physician immediately or return to the Emergency Department at any time for re-evaluation. Prescriptions: Nitrofurantoin/Nitrofuran Mac [Macrobid 100 mg Capsule] 1 tab PO BID #10 capsule Referrals: NEGRITO GAYLE MD [Primary Care Provider] - Follow up as needed
[2017-04-26] MEDS ORDERED: NITROFURANTOIN MONOHYD/M-CRYST 100 MG CAPSULE PO ONE (19:41)
[2017-04-26 19:52] LABS: ABSOLUTE BASOPHILS # (AUTO) 0.1 10^3/uL (0.0-0.2); ABSOLUTE EOSINOPHILS # (AUTO) 0.1 10^3/uL (0.0-0.6); ABSOLUTE LYMPHOCYTES (AUTO) 2.6 10^3/uL (0.5-4.7); ABSOLUTE MONOCYTES (AUTO) 1.1 10^3/uL (0.1-1.4); ABSOLUTE NEUT (AUTO) 6.6 10^3/uL (1.7-8.2); BASOPHILS % (AUTO) 0.5 % (0-2); EOSINOPHILS % (AUTO) 0.8 % (0-6); HEMATOCRIT 43.9 % (36.0-47.0); HEMOGLOBIN 15.1 g/dL (12.0-15.5); HGB HCT DIFFERENCE 1.4; LYMPHOCYTES % (AUTO) 25.2 % (13-45); MEAN CORPUSCULAR HEMOGLOBIN 31.4 pg (27.0-33.4); MEAN CORPUSCULAR HGB CONC 34.4 g/dL (32.0-36.0); MEAN CORPUSCULAR VOLUME 91 fl (80-97); MONOCYTES % (AUTO) 10.3 % (3-13); RED BLOOD COUNT 4.82 10^6/uL (3.72-5.28); RED CELL DISTRIBUTION WIDTH 13.4 % (11.5-14.0); SEGMENTED NEUTROPHILS % (AUTO) 63.2 % (42-78); WHITE BLOOD COUNT 10.4 10^3/uL (4.0-10.5)
[2017-04-26 20:04] LABS: ALANINE AMINOTRANSFERASE 22 U/L (9-52); ALBUMIN 3.3 g/dL (3.5-5.0); ALKALINE PHOSPHATASE 176 U/L (38-126); ANION GAP 8 (5-19); ASPARTATE AMINO TRANSFERASE 25 U/L (14-36); BILIRUBIN,DIRECT 0.3 mg/dL (0.0-0.4); BILIRUBIN,TOTAL 0.6 mg/dL (0.2-1.3); BLOOD UREA NITROGEN 13 mg/dL (7-20); CARBON DIOXIDE 25 mmol/L (22-30); CHLORIDE 103 mmol/L (98-107); CREATININE RESULT 0.74 mg/dL (0.52-1.25); GLUCOSE 86 mg/dL (75-110); SODIUM 135.9 mmol/L (137-145); TOTAL PROTEIN 6.5 g/dL (6.3-8.2)
[2017-04-26 20:16] VITALS: BP 127/87
--- NOTE | 2017-04-26 20:54 | RADIOLOGY REPORT (SQ) ---
EXAM DESCRIPTION: CTA CHEST COMPLETED DATE/TIME: 04/26/2017 8:44 pm REASON FOR STUDY: elevated d-dimer, tachypnea, COMPARISON: None. TECHNIQUE: CT scan of the chest performed using helical scanning technique with dynamic intravenous contrast injection. Images reviewed with lung, soft tissue and bone windows. Reconstructed coronal and sagittal MPR images reviewed. Additional 3 dimensional post-processing performed to develop Maximal Intensity Projection images ([place] P). All images stored on PACS. All CT scanners at this facility use dose modulation, iterative reconstruction, and/or weight based d osing when appropriate to reduce radiation dose to as low as reasonably achievable (ALARA). [facility]: Dose Right [facility]: CareDose [facility]: Dose Right [facility]: Teradose 4D [facility]: [employer] CONTRAST TYPE AND DOSE: 59 mL Isovue 370 RENAL FUNCTION: Creatinine 0.74 RADIATION DOSE: Up-to-date CT equipment and radiation dose reduction techniques were employed. CTDIv ol: 9.9 - 20.7 mGy. DLP: 613 mGy-cm. . LIMITATIONS: None. FINDINGS: LUNGS AND PLEURA: No masses, infiltrates, pneumothorax. No pleural effusions, calcificati ons. AORTA AND GREAT VESSELS: No aneurysm or dissection. HEART: No pericardial effusion. PULMONARY ARTERIES: No emboli visualized in the main pulmonary arteries or the segmental branches. HILAR AND MEDIASTINAL STRUCTURES: No identified masses or abnormal nodes. HARDWARE: None in the chest. UPPER ABDOMEN: No significant findings. Limited exam. THYROID AND OTHER SOFT TISSUES: No masses. No adenopathy. BONES: No acute or significant finding. 3D MIPS: Confirm above findings. OTHER: No other significant finding. IMPRESSION: NORMAL CTA OF THE CHEST. NO PULMONARY EMBOLI. TECHNICAL DOCUMENTATION: JOB ID: [id number] Quality ID # [id number]: Final reports with documentation of one or more dose reduction techniques (e.g., Au tomated exposure control, adjustment of the mA and/or kV according to patient size, use of iterative reconstruction technique) 2010 [employer]- All Rights Reserved
--- NOTE | 2017-04-27 07:53 | EKG REPORT ---
SEVERITY:- BORDERLINE ECG - SINUS RHYTHM PROBABLE LEFT ATRIAL ABNORMALITY BORDERLINE T ABNORMALITIES, ANT-LAT LEADS : Confirmed by: Ector Forbes MD 27-Apr-2017 07:53:03
== END 2017-04-26 21:51 | disposition admitted as inpatient to this hospital (09) ==
LOC: ER 15:13
DX: R06.02 Shortness of breath (principal)
CPT/HCPCS: 93005; 99285; 36415; 87086; 83690; 85025; 80053; 81001; 85379; 71020; 71275; 93010; J8499

== ENCOUNTER 2017-04-26 22:08 | Outpatient (CLI) | payer OTHER, MEDICAID | END 2017-04-26 23:10 | disposition home or self-care (01) | LOC: LC 22:08 | PROVIDERS: ATTEND Student in an Organized Health Care Education/Training Program | DX: O47.1 False labor at or after 37 completed weeks of gestation (principal); Z3A.38 38 weeks gestation of pregnancy ==

== ENCOUNTER 2017-04-30 09:22 | Inpatient (IN) | payer OTHER, MEDICAID ==
--- NOTE | 2017-04-30 09:24 | Non Stress Test Report ---
Non Stress Test Datetime Report Generated by CPN: 04/30/2017 09:24 DEMOGRAPHIC Test Number: 1 EGA NST: 38.3 INDICATION Indication for Study: Other Indication for Study (NST) Other: LC MONITORING Monitor Explained: Monitor Explained; Test Explained; Patient Verbalized Understanding Time on Monitor: 04/26/2017 22:00 Time off Monitor: 04/26/2017 22:33 NST Duration: 33 NST INTERVENTIONS NST Interventions: PO Hydration Physician Notified NST: Dr Patiño BABY A: [id number] BABY A Movement : Present Contraction Frequency : 9-10 FHR Baseline : 115 Accelerations : 15X15 Decelerations : None Variability : Moderate 6-25bpm NST Review: Meets Criteria for Reactive NST NST Review and Verified By : Margi Duncan RN NST Results: Reactive NST REPORT Report Trigger: Send Report
[2017-04-30 10:22] LABS: APPEARANCE,URINE SLIGHTLY-CLOUDY; BILIRUBIN,URINE NEGATIVE (NEGATIVE); GLUCOSE, URINE NEGATIVE (NEGATIVE); KETONES,URINE NEGATIVE (NEGATIVE); LEUKOCYTE ESTERASE,URINE TRACE (NEGATIVE); NITRITE,URINE NEGATIVE (NEGATIVE); PROTEIN,URINE NEGATIVE (NEGATIVE); URINE SPECIFIC GRAVITY 1.006; UROBILINOGEN,URINE NEGATIVE mg/dL (<2.0)
[2017-04-30 10:42] LABS: URINE METHADONE SCREEN NEGATIVE; URINE OPIATES LOW NEGATIVE; URINE PHENCYCLIDINE SCREEN NEGATIVE
[2017-04-30 11:03] LABS: URINE BARBITURATES SCREEN UNCONFIRMED POSITIVE
[2017-04-30 11:27] LABS: ABSOLUTE BASOPHILS # (AUTO) 0.1 10^3/uL (0.0-0.2); ABSOLUTE LYMPHOCYTES (AUTO) 2.7 10^3/uL (0.5-4.7); ABSOLUTE MONOCYTES (AUTO) 1.3 10^3/uL (0.1-1.4); ABSOLUTE NEUT (AUTO) 6.1 10^3/uL (1.7-8.2); BASOPHILS % (AUTO) 0.5 % (0-2); EOSINOPHILS % (AUTO) 0.4 % (0-6); HEMATOCRIT 41.2 % (36.0-47.0); HEMOGLOBIN 13.9 g/dL (12.0-15.5); HGB HCT DIFFERENCE 0.5; MEAN CORPUSCULAR HGB CONC 33.9 g/dL (32.0-36.0); MEAN CORPUSCULAR VOLUME 92 fl (80-97); MONOCYTES % (AUTO) 13.2 % (3-13); RED CELL DISTRIBUTION WIDTH 13.3 % (11.5-14.0); SEGMENTED NEUTROPHILS % (AUTO) 59.9 % (42-78); WHITE BLOOD COUNT 10.2 10^3/uL (4.0-10.5)
[2017-04-30] MEDS ORDERED: OXYTOCIN/NORMAL SALINE 20 UNIT/1,000 ML RTUINJ IV PRN (12:21)
[2017-04-30] MEDS ORDERED: RINGERS SOLUTION,LACTATED 300 ML IV ONE (12:21)
--- NOTE | 2017-04-30 12:29 | L&D Progress Notes ---
PROGRESS NOTES Datetime Report Generated by CPN: 04/30/2017 12:29 PROGRESS NOTE Impression Other: no change in status Procedures: Sterile Vag Exam Procedures: Sterile Vag Exam Procedures- Other: cooks cath placed Procedures- Other: cooks cath placed Plan: Induction Plan: Induction Vital Signs : Reviewed Vital Signs : Reviewed Comment: Cooks cath placed without difficulty Start pitocin VAGINAL EXAM Dilatation: 2 Dilatation: 1 Effacement: 60 Effacement: 50 Station: -2 Station: -2 Contractions: irregular Contractions: 5-6 MEMBRANES Membranes: Intact FETUS A FHR - Baseline: 110 Monitoring: External US Variability: Minimal - Undetectable to <=5bpm Accelerations: Absent Decelerations: None FHR Category: Category II Estimated Weight (gm): 3400 Presentation: Vertex SIGNATURE SIGNATURE: [id number];[id number] SIGNATURE: [id number] Assignment: Ida Patiño MD Signature: with User ID: [email or web address] : with User ID: [email or web address]
[2017-04-30] MEDS ORDERED: OXYTOCIN/NORMAL SALINE 20 UNIT/1,000 ML RTUINJ ONE (12:33)
[2017-04-30] MEDS: RINGERS SOLUTION,LACTATED 1,000 ML IV PRN ×2 (12:39→14:43)
[2017-04-30] MEDS ORDERED: FENTANYL/BUPIVACAINE/NS/PF 200 MCG/100 ML RTUINJ EPI PRN ×2 (12:53→17:27)
[2017-04-30] MEDS ORDERED: BENZOIN/ALOE VERA/STORAX/TOLU TINCTURE 60 ML TP PRN ×2 (12:53→17:27)
[2017-04-30] MEDS ORDERED: BUPIVACAINE HCL 0.25 % INJ/PF (2.5 MG/1 ML) 30 ML VIAL INFIL ONE ×2 (12:53→17:27)
--- NOTE | 2017-04-30 17:30 | L&D Progress Notes ---
PROGRESS NOTES Datetime Report Generated by CPN: 04/30/2017 17:30 PROGRESS NOTE Impression: Normal Progression of Labor; Reactive Non Stress Test Procedures: Sterile Vag Exam Plan: Continue Present Management; Induction; Cervical Ripening Informed Consent Obtained: Vaginal Delivery; Risks, Benefits and Alternatives Discussed Vital Signs : Reviewed; Within Normal Limits Comment: Pt admitted for IOL due to NRNST with low baseline at term. Improved FHR tracing. Cooks catheter placed at admission. Pt reported more pressure. Cvx checks and cooks catheter in vagina. Cvx 5/80/-2. Cooks catheter removed. Pt desires epidural. Plan for AROM after epidural. Pelvis adequate for CJ. S/w Neuro on Wednesday and they advised that ok to labor and no need for passive 2nd stage. VAGINAL EXAM Dilatation: 5 Effacement: 80 Station: -2 MEMBRANES Membranes: Intact FETUS A FHR - Baseline: 110 Monitoring: External US Variability: Moderate 6-25bpm Accelerations: 10X10 Decelerations: None FHR Category: Category I FETUS C SIGNATURE: [id number];[id number] Signature: with User ID: [email or web address]
[2017-04-30] MEDS ORDERED: EPHEDRINE SULFATE INJ 50 MG/1 ML AMPULE ONE (17:44)
[2017-04-30] MEDS ORDERED: FENTANYL/BUPIVACAINE/NS/PF 200 MCG/100 ML RTUINJ EPI ONE (17:44)
[2017-04-30] MEDS ORDERED: BUPIVACAINE HCL 0.25 % INJ/PF (2.5 MG/1 ML) 30 ML VIAL ONE (17:44)
--- NOTE | 2017-04-30 18:55 | L&D Progress Notes ---
PROGRESS NOTES Datetime Report Generated by CPN: 04/30/2017 18:54 PROGRESS NOTE Procedures: Artificial ROM; Sterile Vag Exam Plan: Induction Informed Consent Obtained: Vaginal Delivery Vital Signs : Reviewed Comment: AROM, clear Has epidrual Continue pitocin VAGINAL EXAM Dilatation: 5 Effacement: 80 Station: 0 Contractions: 2-3 min apart MEMBRANES Membranes: Ruptured Amniotic Fluid Color: Clear FETUS A Monitoring: External US FETUS C SIGNATURE: [id number];[id number] Assignment: Ida Patiño MD Signature: with User ID: [email or web address] : with User ID: [email or web address]
[2017-04-30] MEDS ORDERED: ACETAMINOPHEN 325 MG TABLET ONE (21:04)
[2017-04-30] MEDS ORDERED: CITRIC ACID/SODIUM CITRATE ORAL SOLN 15 ML UDCUP PO ONE (23:05)
[2017-04-30] MEDS ORDERED: CITRIC ACID/SODIUM CITRATE ORAL SOLN 15 ML UDCUP ONE (23:18)
[2017-05-01] MEDS ORDERED: ONDANSETRON HCL INJ/PF 4 MG/2 ML SDV ONE ×4 (00:30→18:27)
[2017-05-01] MEDS ORDERED: GENTAMICIN SULFATE INJ 80 MG/2 ML VIAL IV ONE (00:33)
[2017-05-01] MEDS ORDERED: DIPHENHYDRAMINE HCL 50 MG/ML VIAL ONE ×2 (00:35→05:41)
[2017-05-01] MEDS ORDERED: AMPICILLIN SOD INJ 2 GM VIAL ONE (00:36)
[2017-05-01] MEDS ORDERED: ACETAMINOPHEN 325 MG TABLET ONE (00:36)
--- NOTE | 2017-05-01 00:48 | L&D Progress Notes ---
PROGRESS NOTES Datetime Report Generated by CPN: 05/01/2017 00:48 PROGRESS NOTE Impression: Normal Progression of Labor; Chorioamnionitis Procedures: Sterile Vag Exam Plan: Continue Present Management; Induction; Anticipate Vaginal Delivery Informed Consent Obtained: Vaginal Delivery; Risks, Benefits and Alternatives Discussed Comment: Pt states feeling pressure. Temp now 101.8. Will begin Gent/Ancef. reassuring FWB. Continue IOL and anticipate . VAGINAL EXAM Dilatation: 8 Effacement: 80 Station: -1 Contractions: q2-5 MEMBRANES Membranes: Ruptured Amniotic Fluid Color: Clear FETUS A FHR - Baseline: 120 Variability: Moderate 6-25bpm Accelerations: 10X10 Decelerations: None FHR Category: Category I FETUS C SIGNATURE: [id number];[id number] Signature: with User ID: Louise
[2017-05-01] MEDS ORDERED: GENTAMICIN SULFATE INJ 80 MG/2 ML VIAL ONE ×2 (00:51→09:26)
[2017-05-01] MEDS ORDERED: CEFAZOLIN 2 GM/D5W RTU 2 GM/50 ML RTUPB IV ONE ×2 (00:51→11:21)
[2017-05-01] MEDS ORDERED: FENTANYL/BUPIVACAINE/NS/PF 200 MCG/100 ML RTUINJ EPI ONE (01:47)
[2017-05-01] MEDS ORDERED: LIDOCAINE 2% INJ-PF (20 MG/ML) 10 ML AMPUL ONE (01:47)
--- NOTE | 2017-05-01 02:56 | L&D Progress Notes ---
PROGRESS NOTES Datetime Report Generated by CPN: 05/01/2017 02:56 PROGRESS NOTE Impression Other: very swollen vagina, maternal temp. Procedures: Sterile Vag Exam Procedures- Other: whitehead deflated and reinflanted, + response to scalp stim. Plan: Continue Present Management; Antibiotic Therapy Informed Consent Obtained: Vaginal Delivery Vital Signs : Reviewed Vital Signs Comments: temp. Comment: 2 decelerations after ctx. + reaction with scalp stim. resolved with nursing interventions Pts vagina very swollen, ice applied, given benadryl Continue present mgmt VAGINAL EXAM Dilatation: 9 Effacement: 80 Station: 1 Contractions: 2-3 MEMBRANES Membranes: Ruptured Amniotic Fluid Color: Clear FETUS A FHR - Baseline: 105 Monitoring: External US Variability: Moderate 6-25bpm Decelerations: Late FHR Category: Category II FETUS C SIGNATURE: [id number];14,[id number] Assignment: Ida Patiño MD Signature: with User ID: [email or web address] : with User ID: [email or web address]
[2017-05-01] MEDS ORDERED: LIDOCAINE 1% INJ-PF (10 MG/ML) 30 ML SDV ONE ×2 (03:18→09:00)
[2017-05-01] MEDS ORDERED: OXYTOCIN/NORMAL SALINE 0 UNIT/0 ML RTUINJ ONE ×3 (03:18→12:18)
[2017-05-01] MEDS ORDERED: MISOPROSTOL 0.2 MG TABLET ONE ×2 (03:18→09:00)
[2017-05-01] MEDS ORDERED: DIPHENHYDRAMINE HCL 50 MG/ML VIAL IV ONE (05:40)
[2017-05-01] MEDS ORDERED: CEFAZOLIN 1 GM/D5W RTU 1 GM/50 ML RTUPB IV ONE (06:48)
[2017-05-01] MEDS ORDERED: GENTAMICIN SULFATE INJ 80 MG/2 ML VIAL IV SCH (08:00)
[2017-05-01] MEDS ORDERED: CITRIC ACID/SODIUM CITRATE ORAL SOLN 15 ML UDCUP ONE (11:21)
--- NOTE | 2017-05-01 11:26 | L&D Progress Notes ---
PROGRESS NOTES Datetime Report Generated by CPN: 05/01/2017 11:26 PROGRESS NOTE Impression: Arrest of Dilatation/Descent Procedures: Sterile Vag Exam Plan: Deliver- Section Informed Consent Obtained: Section Delivery Vital Signs : Reviewed Vital Signs Comments: elevated temp Comment: Dr. Maxwell at bedside discussing c/s with pt and family Discussed risks, benifits, and alternatives Pt and family argree to preceed with c/s RN at bedside prepping pt for surgery FETUS C SIGNATURE: [id number];10,[id number] Assignment: Lia Maxwell MD Signature: with User ID: [email or web address] : with User ID: [email or web address]
[2017-05-01] MEDS ORDERED: MIDAZOLAM 2 MG/2 ML INJ ONE (11:46)
[2017-05-01] MEDS ORDERED: OXYTOCIN 10 UNIT/ML VIAL ONE (11:46)
[2017-05-01] MEDS ORDERED: FENTANYL CITRATE INJ/PF 100 MCG/2 ML AMPUL ONE (11:46)
[2017-05-01] MEDS ORDERED: EPHEDRINE SULFATE INJ 50 MG/1 ML AMPULE ONE (11:46)
[2017-05-01] MEDS ORDERED: PROMETHAZINE HCL INJ 25 MG/1 ML VIAL IV PRN (12:45)
[2017-05-01] MEDS ORDERED: DIPH/PERTUSS(ACELL)/TETANUS VAC/PF 0.5 ML SYR (>=10YO) IM PRN (12:45)
[2017-05-01] MEDS ORDERED: SIMETHICONE 80 MG TAB.CHEW PO PRN (12:45)
[2017-05-01] MEDS ORDERED: MEASLES,MUMPS&RUBELLA VACC/PF 0.5 ML VIAL SUBCUT PRN (12:45)
[2017-05-01] MEDS ORDERED: ACETAMINOPHEN 325 MG TABLET PO PRN (12:45)
[2017-05-01] MEDS ORDERED: RINGERS SOLUTION,LACTATED 1,000 ML IV PRN (12:45)
[2017-05-01] MEDS ORDERED: ACETAMINOPHEN 100 ML IV PRN (12:45)
[2017-05-01] MEDS ORDERED: OXYTOCIN/NORMAL SALINE 20 UNIT/1,000 ML RTUINJ IV PRN (12:45)
[2017-05-01] MEDS ORDERED: ACETAMINOPHEN 100 ML IV ONE (13:39)
[2017-05-01] MEDS: KETOROLAC TROMETHAMINE INJ/PF 30 MG/1 ML SDV IV SCH ×2 (14:36→21:25)
[2017-05-01] MEDS ORDERED: OXYTOCIN/NORMAL SALINE 20 UNIT/1,000 ML RTUINJ ONE (14:46)
--- NOTE | 2017-05-01 14:57 | OPERATIVE REPORT E ---
Operative Report NAME: ANEESH SKINNER : 1985 AGE: 31Y DATE OF SURGERY: 05/01/2017 ROOM: LR200 PREOPERATIVE DIAGNOSIS: Arrest of descent. POSTOPERATIVE DIAGNOSIS: Arrest of descent. OPERATION: Primary section via low transverse uterine incision SURGEON: JUDSON RAMÍREZ M.D. ANESTHESIA: General. BLOOD LOSS: 250. FINDINGS: Viable male. Apgars were 9 and 9. 7 pounds 10 ounces. Crying at delivery. HISTORY: The patient had been admitted for induction of labor, progressed to complete but could not push the baby past 0 station. The family is now requesting a . PROCEDURE: The patient was taken back to the OR and placed in a supine position. Her spinal had been placed. Her abdomen was prepped and draped in a sterile fashion. The bladder was drained with a Lux catheter. A low transverse incision was made and carried down to the level of the fascia, which was nicked in the midline. The fascial incision was extended bilaterally using curved Dumont scissors. The fascia was off the rectus muscles using sharp and blunt dissection. The rectus muscles were in the midline. The peritoneum was entered without incident. A peritoneal incision was made on the serosa, creating a bladder flap. A low transverse uterine incision was made with a c-safe knife. This was extended with fingertips. The baby's head was delivered with some fundal pressure. The baby was occiput anterior. The baby was delivered completely, the cord was doubly clamped and cut, and the infant was passed off to the manager mail. Cord blood was obtained. The placenta was manually extracted. The uterus was externalized and wiped with a moist lap sponge. The tubes and ovaries were normal. The uterine contents were wiped clean. The uterine incision was closed with a running locking layer of 0 chromic, using the second layer to imbricate the first, completing a double-layered closure of the uterus. The serosa was closed with a 2-0 chromic stitch. Hemostasis was good. The pelvis was irrigated and suctioned free of fluid. The uterus was replaced and found to be hemostatic. The abdominal wall peritoneum was closed with a running 2-0 chromic stitch. The subfascial tissues were inspected for bleeding. The fascia was closed with running 0 Vicryl in 2 segments. The wound was irrigated. Shahnaz layer was closed with a 2-0 plain gut stitch and the skin closed with running subcuticular 4-0 undyed Vicryl stitch. Mother and baby are doing well. DICTATING PHYSICIAN: JUDSON RAMÍREZ M.D. [id number] PHY#: [id number] ID: [id number] JOB#: [id number] ACCT: [id number] cc:JUDSON RAMÍREZ M.D. > MTDD
--- NOTE | 2017-05-01 15:04 | Admission Physical ---
Datetime Report Generated by CPN: 05/01/2017 15:03 CURRENT ADMISSION Hx Assessment: The History has been Reviewed and is Current Chief Complaint: Sent from OB Office for Evaluation and Treatment - Please Specify Chief Complaint Other: Non-reassuring NST in office Indication for Induction: Indicated by Testing Admit Plan: Admit to Unit; Initiate Labor Induction Protocol ALLERGIES Medication Allergies: Yes Medication Allergies: ciprofloxacin HCl (04/26/2017); Penicillins (04/26/2017); clavulanic acid (04/26/2017); ciprofloxacin (04/26/2017); amoxicillin (04/26/2017) Medication Allergies: ciprofloxacin HCl (12/22/2016); Penicillins (12/22/2016); ciprofloxacin (12/22/2016); amoxicillin (12/22/2016) Medication Allergies: ciprofloxacin HCl (06/18/2014); Penicillins (06/18/2014); ciprofloxacin (06/18/2014); amoxicillin (06/18/2014) Latex: No Latex Allergies Food Allergies: na Environmental Allergies: seasonal OBSTETRICAL HISTORY EDC: 05/07/2017 00:00 : 1 Para: 0 Term: 0 : 0 SAB: 0 IAB: 0 Ectopic: 0 Livin Cesareans: 0 VBACs: 0 Multiple Births: 0 Gestational Diabetes: No Rh Sensitization: No Incompetent Cervix: No MARCI: No Infertility: No ART Treatment: No Uterine Anomaly: No IUGR: No Hx Previous C/S: No Macrosomia: No Hx Loss/Stillborn: No PIH: No Hx : No Placenta Previa/Abruption: No Depression/PP Depression: No PTL/PROM: No Post Hemorrhage: No Current Procedures: Ultrasound; NST Obstetrical History Comments: G1-current SEE RECORDS Alcohol: No Marijuana : No Cocaine: No Other Illicit Drugs: No Cigarettes: Never Smoker. 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 surgery- appendectomy, breast augmentation, L wrist surgery depression, anxiety INFECTIOUS HISTORY Gonorrhea: No Genital Herpes: Yes Chlamydia: Yes Tuberculosis: No Syphilis: No Hepatitis: No HIV/AIDS Exposure: No Rash or Viral Illness: No HPV: No Infectious History Comments: 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 , on valtrex chlamydia 03/2017 PHYSICAL EXAM General: Normal HEENT: Normal Neurologic: Normal Thyroid: Normal Heart: Normal Lungs: Normal Breast: Normal Back: Normal Abdomen: Normal Genitourinary Exam: Normal Extremities: Normal DTRs: Normal Pelvic Type: Adequate Vital Signs: Reviewed VAGINAL EXAM Dilatation: 9 Dilatation: 8 Dilatation: 5 Dilatation: 5 Dilatation: 2 Dilatation: 1 Effacement: 80 Effacement: 80 Effacement: 80 Effacement: 80 Effacement: 60 Effacement: 50 Station: 1 Station: -1 Station: 0 Station: -2 Station: -2 Station: -2 Contraction Comments: 2-3 Contraction Comments: q2-5 Contraction Comments: 2-3 min apart Contraction Comments: irregular Contraction Comments: 5-6 MEMBRANES Membranes: Ruptured Membranes: Ruptured Membranes: Ruptured Membranes: Intact Membranes: Intact Amniotic Fluid Color: Clear Amniotic Fluid Color: Clear Amniotic Fluid Color: Clear FETUS A EGA: 39.0 Monitoring: External US FHR- Baseline: 105 Variability: Minimal - Undetectable to <=5bpm Accelerations: Absent Decelerations: None FHR Category: Category II Estimated Weight (gm): 3400 Presentation: Vertex Admit Comment: Pt sent in from office d/t non-reactive nst, minimal variablity, states active fetus, denies leaking or bleeding, states irregular ctx. 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 Admit to L _ D GBS negative Allergies as above Will place cooks cath and continue to monitor PLANS FOR LABOR AND DELIVERY Labor and Delivery: None Pain Management: Epidural Feeding Preference: Breast Benefit of Breast Feed Discussed: Yes Circumcision: Yes INFORMED CONSENT Informed Consent Obtained: Section Delivery Informed Consent Obtained: Vaginal Delivery Informed Consent Obtained: Vaginal Delivery; Risks, Benefits and Alternatives Discussed Informed Consent Obtained: Vaginal Delivery Informed Consent Obtained: Vaginal Delivery; Risks, Benefits and Alternatives Discussed Assignment: Ida Patiño MD Signature: with User ID: [email or web address] : with User ID: [email or web address]
[2017-05-01] MEDS ORDERED: HYDROMORPHONE HCL INJ/PF 2 MG/ML AMPULE IV PRN ×2 (15:18→15:51)
[2017-05-01] MEDS ORDERED: HYDROMORPHONE HCL INJ/PF 2 MG/ML AMPULE ONE (15:22)
[2017-05-01] MEDS: HYDROMORPHONE HCL INJ/PF 2 MG/ML AMPULE IV PRN ×2 (18:28→22:36)
--- NOTE | 2017-05-01 18:48 | Delivery Summary ---
Del Sum A-C Datetime Report Generated by CPN: 05/01/2017 18:48 DELIVERY PERSONNEL DELIVERY PERSONNEL: [id number] Delivery Doctor:: Lia Maxwell MD Labor and Delivery Nurse:: Marily Condon RNinsulator apprentice Nurse:: Marino Moser RN Sailing Master:: Dr. Yin [facility] Nurse:: Rosio Harmon RN [employer] Consultant/EDUCATIONAL ADVISER: Tiffany Cardona CST [employer]os Consultant/EDUCATIONAL ADVISER: Telly Marin BLOOD BANK LABORATORY PROFESSIONAL MATERNAL INFORMATION Delivery Anesthesia: Spinal Medications After Delivery: Pitocin Bolus-Please Comment Meds After Delivery Comment: Pitocin 20 units in 1000 mL NS Maternal Complications: Chorioamnionitis LABOR SUMMARY EDC: 05/07/2017 00:00 No. Babies in Womb: 1 Labor Anesthesia: Epidural LABOR INFORMATION Reason for Induction: Other Reason for Induction- Other: Non reactive NST Complete Dilatation: 05/01/2017 09:20 Oxytocin: Induction Group B Beta Strep: negative Antibiotics # of Doses: 0 MEMBRANES Membranes Rupture Method: Artificial Rupture of Membranes: 04/30/2017 18:47 Length of Rupture (hr): 17.43 Amniotic Fluid Color: Clear Amniotic Fluid Amount: Moderate Amniotic Fluid Odor: Normal STAGES OF LABOR Stage 2 hr: 2 Stage 2 min: 53 Stage 3 hr: 0 Stage 3 min: 1 CSECTION DELIVERY Primary Indication: Arrest of Descent Secondary Indication: Nonreassuring Status CSection Urgency: Non-Scheduled CSection Incidence: Primary Labor: Labor Elective: Nonelective CSection Incision: Lower Uterine Transverse BABY A INFORMATION Delivery Date/Time: 05/01/2017 12:13 Method of Delivery: Born in Route : No : N/A Forceps: N/A Vacuum Extraction: N/A Shoulder Dystocia : No PRESENTATION/POSITION BABY A Presentation: Cephalic Cephalic Presentation: Vertex PLACENTA INFORMATION BABY A Placenta Delivery Time : 05/01/2017 12:14 Placenta Method of Delivery: Manual Removal Placenta Status: Delivered SCORES BABY A Heart Rate 1 min: >100 bpm Resp Effort 1 min: Good Cry Reflex Irritability 1 min: Cough or Sneeze or Pulls Away Muscle Tone 1 min: Active Motion Color 1 min: Body [place], Extremities Blue Resuscitation Effort 1 min: Tactile Stimulation SCORE 1 MIN: 9 Heart Rate 5 min: >100 bpm Resp Effort 5 min: Good Cry Reflex Irritability 5 min: Cough or Sneeze or Pulls Away Muscle Tone 5 min: Active Motion Color 5 min: Body [place], Extremities Blue Resuscitation Effort 5 min: N/A SCORE 5 MIN: 9 INFANT INFORMATION BABY A Gestational Age at Delivery: 39.1 Gestational Status: Full Term- 39- 40.6 Weeks Infant Outcome : Liveborn Condition : Stable Infant Sex: Male WEIGHT/LENGTH BABY A Infant Birthweight (gm): 3445 Infant Weight (lb): 7 Infant Weight (oz): 10 Infant Length (in): 20.25 Length (cm): 51.44 CORD INFORMATION BABY A No. Cord Vessels: 3 Nuchal Cord : N/A Cord Blood Taken: Yes-For Eval (Mom's Blood Type - or O+)
[2017-05-01] MEDS: DOCUSATE SODIUM 100 MG CAPSULE PO SCH (18:56)
[2017-05-01] MEDS ORDERED: ONDANSETRON HCL INJ/PF 4 MG/2 ML SDV IV PRN (19:13)
[2017-05-01] MEDS: (PENDING PHARMACY ID) (Buspirone Hcl [Buspar 5 Mg Tablet] 7.5 MG) PO SCH (21:07)
[2017-05-02] MEDS: KETOROLAC TROMETHAMINE INJ/PF 30 MG/1 ML SDV IV SCH (05:18)
[2017-05-02 06:25] LABS: HEMOGLOBIN 12.8 g/dL (12.0-15.5); HGB HCT DIFFERENCE 1.4; MEAN CORPUSCULAR HEMOGLOBIN 31.1 pg (27.0-33.4); MEAN CORPUSCULAR HGB CONC 34.5 g/dL (32.0-36.0); MEAN CORPUSCULAR VOLUME 90 fl (80-97); RED BLOOD COUNT 4.11 10^6/uL (3.72-5.28)
[2017-05-02 07:01] LABS: WHITE BLOOD COUNT 30.5 10^3/uL (4.0-10.5)
[2017-05-02] MEDS ORDERED: CEFTRIAXONE 1 GM/D5W RTU 1 GM/50 ML RTUPB IV SCH (08:00)
[2017-05-02] MEDS: OXYCODONE-ACETAMINOPHEN 5-325 MG TABLET PO PRN ×3 (09:09→21:44)
[2017-05-02] MEDS: DOCUSATE SODIUM 100 MG CAPSULE PO SCH ×2 (09:10→17:20)
[2017-05-02] MEDS: PRENATAL VITAMIN W-O CA NO5/FE FUMARATE/FA CAPSULE PO SCH (09:10)
[2017-05-02] MEDS: CEFTRIAXONE 1 GM/D5W RTU 1 GM/50 ML RTUPB IV SCH ×2 (09:25→21:45)
[2017-05-02] MEDS ORDERED: GLYCERIN/WITCH HAZEL LEAF 1 EACH MED..PAD TP PRN (10:36)
[2017-05-02] MEDS ORDERED: BENZOCAINE/MENTHOL AEROSOL SPRAY 56 ML TP PRN (10:37)
[2017-05-02] MEDS: IBUPROFEN 800 MG TABLET PO SCH ×3 (11:45→23:04)
--- NOTE | 2017-05-02 14:12 | PDOC PROGRESS REPORT ---
Subjective-OB Subjective: Post Delivery Day: 1 31 year old. Denies any needs at this time, is tolerating diet, still has whitehead in has not been up. Pain is moderately well controlled. Physical Exam (OB) Vital Signs: Temp Pulse Resp BP Pulse Ox 98.2 F 76 15 110/74 97 05/02/17 11:44 05/02/17 11:44 05/02/17 11:44 05/02/17 11:44 05/02/17 11:44 Intake & Output 05/01/17 05/02/17 05/03/17 06:59 06:59 06:59 Intake Total 600 Output Total 1600 300 Balance -1000 -300 Weight 70 kg - PIH/Pre-Eclampsia Clonus: Negative Headache: Absent Epigastric Pain: No Visual Changes: No - Dressing Removed: No Incision: Dressing Closure Type: opsite - Lochia Lochia Amount: Scant < 10 ml Lochia Color: Rubra/Red - Abdomen Description: Soft Hernia Present: No Fundal Description: Firm, Midline Fundal Height: u/u - u/2 Objective-Diagnostic Laboratory: 05/02/17 06:04 05/02/17 06:04 WBC 30.5 H* D RBC 4.11 Hgb 12.8 Hct 37.0 MCV 90 MCH 31.1 MCHC 34.5 RDW 14.0 Plt Count 224 Assessment and Plan(PN) - Assessment and Plan (1) delivery delivered Is this a current diagnosis for this admission?: Yes Plan: Routine care. (2) Acute blood loss anemia Is this a current diagnosis for this admission?: Yes Plan: ferrous sulfate increase dietary iron - Time Spent with Patient Time with patient: Less than 15 minutes Critical Time spent with patient: Less than 15 minutes Medications reviewed and adjusted accordingly: Yes - Disposition Anticipated Discharge: Home Within: within 24 hours
[2017-05-02] MEDS: FAMOTIDINE 20 MG TABLET PO SCH (17:18)
[2017-05-03] MEDS: (PENDING PHARMACY ID) (Buspirone Hcl [Buspar 5 Mg Tablet] 7.5 MG) PO SCH ×2 (00:32→13:50)
[2017-05-03] MEDS: OXYCODONE-ACETAMINOPHEN 5-325 MG TABLET PO PRN ×3 (01:00→10:41)
[2017-05-03] MEDS: IBUPROFEN 800 MG TABLET PO SCH ×2 (06:21→13:50)
[2017-05-03] MEDS: PRENATAL VITAMIN W-O CA NO5/FE FUMARATE/FA CAPSULE PO SCH (09:47)
[2017-05-03] MEDS: DOCUSATE SODIUM 100 MG CAPSULE PO SCH (09:47)
[2017-05-03] MEDS: CEFTRIAXONE 1 GM/D5W RTU 1 GM/50 ML RTUPB IV SCH (09:48)
[2017-05-03 10:25] LABS: ABSOLUTE BASOPHILS # (AUTO) 0.1 10^3/uL (0.0-0.2); ABSOLUTE EOSINOPHILS # (AUTO) 0.3 10^3/uL (0.0-0.6); ABSOLUTE LYMPHOCYTES (AUTO) 2.8 10^3/uL (0.5-4.7); ABSOLUTE MONOCYTES (AUTO) 1.2 10^3/uL (0.1-1.4); ABSOLUTE NEUT (AUTO) 10.5 10^3/uL (1.7-8.2); BASOPHILS % (AUTO) 0.4 % (0-2); EOSINOPHILS % (AUTO) 1.9 % (0-6); HEMATOCRIT 35.3 % (36.0-47.0); HEMOGLOBIN 12.2 g/dL (12.0-15.5); HGB HCT DIFFERENCE 1.3; LYMPHOCYTES % (AUTO) 19.2 % (13-45); MEAN CORPUSCULAR HEMOGLOBIN 31.2 pg (27.0-33.4); MEAN CORPUSCULAR HGB CONC 34.5 g/dL (32.0-36.0); MEAN CORPUSCULAR VOLUME 91 fl (80-97); MONOCYTES % (AUTO) 7.9 % (3-13); RED CELL DISTRIBUTION WIDTH 13.9 % (11.5-14.0); SEGMENTED NEUTROPHILS % (AUTO) 70.6 % (42-78); WHITE BLOOD COUNT 14.9 10^3/uL (4.0-10.5)
[2017-05-03 10:33] LABS: PATH REVIEW PATHOLOGIST REVIEWED
[2017-05-03] MEDS: FAMOTIDINE 20 MG TABLET PO SCH (11:01)
[2017-05-03 11:36] VITALS: BP 116/86
--- NOTE | 2017-05-03 12:53 | PDOC DISCHARGE SUMMARY ---
Final Diagnosis Discharge Date: 05/03/17 - Final Diagnosis (1) delivery delivered Is this a current diagnosis for this admission?: Yes Discharge Data - Discharge Medication Home Medications: Buspirone HCl [Buspar 5 mg Tablet] 7.5 mg PO BID 12/22/16 Folic Acid 3 mg PO DAILY 12/22/16 Pnv with Ca,No.72/Iron/FA [Pnv Plus Multivit Tab] 1 tab PO DAILY Docusate Sodium [Colace 100 mg Capsule] 100 mg PO BID 03/07/17 Nitrofurantoin/Nitrofuran Mac [Macrobid 100 mg Capsule] 1 tab PO BID #10 capsule 04/26/17 Butalb/Acetaminophen/Caffeine [Fioricet (50-325-40 mg) Tablet] 1 tab PO Q4HP PRN 04/30/17 Reason(s) for Admission: Induction of Labor, Ceasarean Section-Primary Procedures: NST, Management of Obstetric Complications Intrapartum Procedure(s): : Low Cervical, Transverse - Diagnosis Test Laboratory: Temp Pulse Resp BP Pulse Ox 97.7 F 55 L 16 116/86 H 100 05/03/17 11:20 05/03/17 11:20 05/03/17 11:20 05/03/17 11:20 05/03/17 11:20 04/30/17 04/30/17 05/02/17 09:34 10:46 06:04 RBC 4.50 4.11 Hgb 13.9 12.8 Hct 41.2 37.0 Urine Opiates Screen NEGATIVE 05/03/17 10:12 RBC 3.90 Hgb 12.2 Hct 35.3 L Urine Opiates Screen - Discharge information/Instructions Discharge Activity: Activity As Tolerated, Balance Activity w/Rest, No Driving, No Lifting Over 10 Pounds, No Lifting/Push/Pulling, Pelvic Rest, No tub bath Discharge Diet: Regular Disposition: HOME, SELF-CARE Follow up with: [facility] in: 5, Days
== END 2017-05-03 14:10 | disposition home or self-care (01) | DRG 765 ==
LOC: LC 09:22 → LR 10:01 → 2S 05-01 14:48
PROVIDERS: ADMIT Student in an Organized Health Care Education/Training Program; ATTEND Obstetrics & Gynecology
PROC: 3E0P7GC Introduction of Other Therapeutic Substance into Female Reproductive, Via Natural or Artificial Opening (ICD-10-PCS; 2017-04-30)
PROC: 3E033VJ Introduction of Other Hormone into Peripheral Vein, Percutaneous Approach (ICD-10-PCS; 2017-04-30)
PROC: 4A1HXCZ Monitoring of Products of Conception, Cardiac Rate, External Approach (ICD-10-PCS; 2017-04-30)
PROC: 10D00Z1 Extraction of Products of Conception, Low, Open Approach (ICD-10-PCS; principal; 2017-05-01)
DX: O62.1 Secondary uterine inertia (principal); O41.1230 Chorioamnionitis, third trimester, not applicable or unspecified; O98.32 Other infections with a predominantly sexual mode of transmission complicating childbirth; O75.2 Pyrexia during labor, not elsewhere classified; O76 Abnormality in fetal heart rate and rhythm complicating labor and delivery; O99.344 Other mental disorders complicating childbirth; Z37.0 Single live birth; A60.00 Herpesviral infection of urogenital system, unspecified; F41.9 Anxiety disorder, unspecified; F32.9 Major depressive disorder, single episode, unspecified; Z3A.39 39 weeks gestation of pregnancy; Z79.899 Other long term (current) drug therapy; Z88.0 Allergy status to penicillin; Z3A.00 Weeks of gestation of pregnancy not specified; O99.02 Anemia complicating childbirth; D64.9 Anemia, unspecified; Z90.49 Acquired absence of other specified parts of digestive tract
CPT/HCPCS: 1961; 36415; 80307; 80345; 81005; 85025; 85027; 86592; 86850; 86900; 86901; 88307; 94799; C1726; G0480; J0131; J0290; J0690; J0696; J1170; J1200; J1580; J1885; J2250; J2405; J2550; J2590; J3010; J3490

== ENCOUNTER 2017-05-16 12:16 | Emergency (ER) | payer OTHER, MEDICAID ==
[2017-05-16] MEDS ORDERED: LIDOCAINE 4%/TETRACAINE 0.5%/EPI 0.18% 5 ML TOPICAL SOLN TOP ONE (13:16)
--- NOTE | 2017-05-16 13:22 | ER Document Report ---
ED Skin Rash/Insect Bite/Abscs - General Chief Complaint: Skin Problem Stated Complaint: ABDOMINAL PAIN Time Seen by Provider: 05/16/17 12:47 Mode of Arrival: Ambulatory Information source: Patient Notes: 32-year-old female presents to ED for complaint of possible infection to the right side of her . She had a 15 days ago. She is breast- feeding. TRAVEL OUTSIDE OF THE [place] IN LAST 30 DAYS: No - HPI Patient complains to provider of: Tender/swollen area Onset: Other - Couple days Onset/Duration: Gradual Quality of pain: Sharp Severity: Moderate Pain Level: 2 Skin Character: Abscess Skin Temperature: Warm Quality of rash: Painful Identify cause: Yes Exacerbated by: Movement Relieved by: Denies Similar symptoms previously: No Recently seen / treated by doctor: No - Related Data Allergies/Adverse Reactions: amoxicillin [Amoxicillin] Allergy (Verified 05/16/17 14:52) ciprofloxacin [From Cipro] Allergy (Verified 05/16/17 14:52) ciprofloxacin HCl [From Cipro] Allergy (Verified 05/16/17 14:52) clavulanic acid [From Augmentin] Allergy (Verified 05/16/17 14:52) Penicillins Allergy (Verified 05/16/17 14:52) Past Medical History - General Information source: Patient - Social History Smoking Status: Never Smoker Cigarette use (# per day): No Chew tobacco use (# tins/day): No Smoking Education Provided: No Frequency of alcohol use: Rare Drug Abuse: None 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 Lives with: Family Family History: Reviewed & Not Pertinent Patient has suicidal ideation: No Patient has homicidal ideation: No - Medical History Medical History: Other - chorio defect,neuro tube defect at - Past Medical History Cardiac Medical History: Reports: None Pulmonary Medical History: Reports: None EENT Medical History: Reports: None Neurological Medical History: Reports: Hx Seizures Endocrine Medical History: Reports: None Renal/ Medical History: Reports: None Malignancy Medical History: Reports: None GI Medical History: Reports: None Musculoskeltal Medical History: Reports Hx Musculoskeletal Trauma Skin Medical History: Reports None Psychiatric Medical History: Reports: Hx Anxiety Traumatic Medical History: Reports: None Infectious Medical History: Reports: None Past Surgical History: Reports: Hx Appendectomy, Hx Breast Surgery - augmentation, Hx Orthopedic Surgery - elbow surgery left wrist - Immunizations Immunizations up to date: Yes Hx Diphtheria, Pertussis, Tetanus Vaccination: Yes Review of Systems - Review of Systems Constitutional: No symptoms reported EENT: No symptoms reported Cardiovascular: No symptoms reported Respiratory: No symptoms reported Gastrointestinal: No symptoms reported Genitourinary: No symptoms reported Female Genitourinary: No symptoms reported Musculoskeletal: No symptoms reported Skin: Change in color - lump right side of c section Hematologic/Lymphatic: No symptoms reported Neurological/Psychological: No symptoms reported -: Yes All other systems reviewed and negative Physical Exam - Vital signs Vitals: Temp Pulse Resp BP Pulse Ox 97.8 F 84 16 121/83 97 05/16/17 12:23 05/16/17 12:23 05/16/17 12:23 05/16/17 12:23 05/16/17 12:23 Interpretation: Normal - General General appearance: Appears well, Alert - HEENT Head: Normocephalic, Atraumatic Eyes: Normal Pupils: PERRL - Respiratory Respiratory status: No respiratory distress Chest status: Nontender Breath sounds: Normal Chest palpation: Normal - Cardiovascular Rhythm: Regular Heart sounds: Normal auscultation Murmur: No - Abdominal Inspection: Normal Distension: No distension Bowel sounds: Normal Tenderness: Tender Organomegaly: No organomegaly - Back Back: Normal, Nontender - Extremities General upper extremity: Normal inspection, Nontender, Normal color, Normal ROM , Normal temperature General lower extremity: Normal inspection, Nontender, Normal color, Normal ROM , Normal temperature, Normal weight bearing. No: Kimo's sign - Neurological Neuro grossly intact: Yes Cognition: Normal Orientation: AAOx4 Anita Coma Scale Eye Opening: Spontaneous [place] Coma Scale Verbal: Oriented Anita Coma Scale Motor: Obeys Commands Anita Coma Scale Total: 15 Speech: Normal Motor strength normal: LUE, RUE, LLE, RLE Sensory: Normal - Psychological Associated symptoms: Normal affect, Normal mood - Skin Skin Temperature: Warm Skin Moisture: Dry Skin Color: Normal Skin irregularity: Abscess - right side of abdomen just above csection scar Irregularity with: Swelling, Tenderness, Warmth Course - Re-evaluation Re-evalutation: 05/16/17 21:59 Dr. medrano was consulted to ultrasound the abscess. He stated I would just need to open it with a 18-gauge needle and start patient on antibiotics. Patient requested SECURITY DEVELOPER be called before I&D was completed. SECURITY DEVELOPER was called and spoke with Dr. Collier at 1320 he stated he had several deliveries to do to just have patient follow-up in the office on Wednesday which patient was informed. Patient tolerated I&D well. Patient was treated with Keflex and Bactrim and instructed to follow-up with SECURITY DEVELOPER on Wednesday. - Vital Signs Vital signs: Temp Pulse Resp BP Pulse Ox 98.7 F 75 16 105/67 99 05/16/17 15:16 05/16/17 15:16 05/16/17 15:16 05/16/17 15:16 05/16/17 15:16 Procedures - Incision and Drainage Right Abdomen Type: Simple Anesthetic type: 1% Lidocaine mL's of anesthetic: 3 Blade size: Other - 18-gauge needle I&D procedure: Betadine prep applied, Sterile dressing applied Incision Method: Incision made with needle Amount/type of drainage: Small amount of serosanguineous Discharge - Discharge Clinical Impression: abscess right abdomen superficial Condition: Stable Disposition: HOME, SELF-CARE Additional Instructions: ABSCESS: You have an abscess (boil). This a pus-forming infection, usually due to staph. Some boils may be left to drain on their own, but most require lancing. From the time the tender lump first appears, it may be three or four days before the abscess is ready to otilia. Local heat and rest help at this stage of treatment. An antibiotic may prevent spread of the infection. Once the abscess is opened, packing may be placed into it. This is done so pus is not sealed inside by premature closure of the cavity. The packing will be removed at your follow-up visit or you may be advised to remove it yourself at home. Sometimes this packing must be replaced a few times during healing. The wound will heal with surprisingly little scar. Depending on the size and location of an abscess, healing can take one to four weeks. You may shower and wash the area around the incision site two or three times a day. Antibiotics may be prescribed, but are usually not necessary after an abscess has been drained. If you develop fever, chills, worsening pain, or increasing swelling in the area, call the doctor or return immediately. POST INCISION AND DRAINAGE: You have had an incision made to allow drainage of an abscess. The incision must remain open so that pus and debris can drain from the wound. If the abscess cavity is large, packing is placed. This keeps the tissues from collapsing and trapping pus inside, while the body shrinks the cavity. The packing may need to be replaced every day or two. The physician will instruct you on the packing. Keep a bulky dressing over the area. Replace it if it becomes saturated with blood or pus. Do not disturb the packing (if present). You may shower and cleanse the area with gentle soap and warm water two or three times a day. Local warmth may be soothing, and may promote faster healing. Return if you develop high fever or chills, or if you note spreading redness, increasing swelling, or increasing tenderness. CEPHALEXIN: The antibiotic you've been prescribed is a member of the cephalosporin class. This type of antibiotic covers a wide variety of infections, including those of the skin, lungs, and urinary tract. It's useful for staph infections. This antibiotic is slightly similar to the penicillin family. In rare cases , a person who is allergic to penicillin will also be allergic to this medication. If you have had a severe allergic reaction to penicillin, and have not taken this antibiotic since that time, notify your doctor. Antibiotics which cover many germs ("broad spectrum" antibiotics) are more likely to cause diarrhea or "yeast" infections. Women prone to vaginal yeast problems may suffer an attack after taking this antibiotic. In infants, oral thrush (white spots "stuck" on the cheek) or yeast diaper rash may result. See your doctor if these problems occur. Call at once if you develop itching, hives , shortness of breath, or lightheadedness. TRIMETHOPRIM-SULFA: You have been given a prescription for trimethoprim-sulfa (TMS, Septra, Bactrim). This is a combination antibiotic of the sulfa class, often used for urinary tract infections, middle ear infections, bronchitis, shigella intestinal infection, and Pneumocystis pneumonia. TMS is usually well-tolerated. Occasional side effects include nausea and decreased appetite. Septra is not recommended for infants less than two months of age. Do not take this medication if you have experienced severe side effects or allergy to sulfa medicine. You should stop this medicine at once and contact your physician if you develop any rash, joint pain, shortness of breath, bruising, or jaundice ( yellow color in the skin), or if you develop any other new or unusual symptoms. FOLLOW-UP CARE: Most simple abscesses will not require a follow up visit. If you had packing placed in the abscess, remove it as instructed by the physician. If you have been referred to a physician for follow-up care, call the physicians office for an appointment as you were instructed or within the next two days. If you experience worsening or a significant change in your symptoms, return to the Emergency Department at any time for re-evaluation. Prescriptions: Cephalexin Monohydrate [Keflex 500 mg Capsule] 500 mg PO QID #20 capsule Sulfamethoxazole/Trimethoprim [Bactrim Ds Tablet] 1 each PO BID #14 tablet Referrals: GALO MCMANUS MD [Primary Care Provider] - Follow up as needed
[2017-05-16] MEDS ORDERED: CEPHALEXIN 500 MG CAPSULE PO ONE (14:21)
[2017-05-16 15:22] VITALS: BP 105/67
== END 2017-05-16 15:23 | disposition home or self-care (01) ==
LOC: ER 12:16
PROC: 0H97XZZ Drainage of Abdomen Skin, External Approach (ICD-10-PCS; principal; 2017-05-16)
DX: O99.73 Diseases of the skin and subcutaneous tissue complicating the puerperium (principal); L02.211 Cutaneous abscess of abdominal wall; Z98.890 Other specified postprocedural states; Z88.0 Allergy status to penicillin; Z88.1 Allergy status to other antibiotic agents
CPT/HCPCS: 99283; 10060; J3490

== ENCOUNTER 2017-06-07 04:24 | Emergency (ER) | payer OTHER, MEDICAID ==
[2017-06-07] MEDS ORDERED: NAPROXEN 250 MG TABLET PO ONE (04:49)
[2017-06-07] MEDS ORDERED: CEPHALEXIN 500 MG CAPSULE PO ONE (04:49)
[2017-06-07] MEDS ORDERED: HYDROCODONE/ACETAMINOPHEN 5-325 MG 6 TAB/DSPK PO PRN (04:50)
--- NOTE | 2017-06-07 04:52 | ER Document Report ---
ED Breast Problem - General Chief Complaint: Breast Problem Stated Complaint: BREAST PAIN,FEVER Time Seen by Provider: 06/07/17 04:41 Notes: Patient is a 32-year-old female that comes emergency department for chief complaint of pain in both breasts, but 3 days ago she began having pain in her right breast with some swelling, yesterday she developed pain in the left breast as well, she states that she developed a fever during the day today. She took Tylenol for the fever. She states she was initially breast-feeding, now she is pumping, she states she has been pumping daily to try to pass obstruction but had the worsening symptoms anyway. She denies any history of MRSA infection. She denies history of diabetes. TRAVEL OUTSIDE OF THE [place] IN LAST 30 DAYS: No - Related Data Allergies/Adverse Reactions: amoxicillin [Amoxicillin] Allergy (Verified 05/16/17 14:52) ciprofloxacin [From Cipro] Allergy (Verified 05/16/17 14:52) ciprofloxacin HCl [From Cipro] Allergy (Verified 05/16/17 14:52) clavulanic acid [From Augmentin] Allergy (Verified 05/16/17 14:52) Penicillins Allergy (Verified 05/16/17 14:52) Past Medical History - General Information source: Patient - Social History Smoking Status: Never Smoker Frequency of alcohol use: None Drug Abuse: None Lives with: Family Family History: Reviewed & Not Pertinent Neurological Medical History: Reports: Hx Seizures Renal/ Medical History: Denies: Hx Peritoneal Dialysis Musculoskeltal Medical History: Reports Hx Musculoskeletal Trauma Psychiatric Medical History: Reports: Hx Anxiety Past Surgical History: Reports: Hx Appendectomy, Hx Breast Surgery - augmentation, Hx Orthopedic Surgery - elbow surgery left wrist - Immunizations Immunizations up to date: Yes Hx Diphtheria, Pertussis, Tetanus Vaccination: Yes Review of Systems - Review of Systems Constitutional: No symptoms reported EENT: No symptoms reported Cardiovascular: No symptoms reported Respiratory: No symptoms reported Gastrointestinal: No symptoms reported Genitourinary: No symptoms reported Female Genitourinary: No symptoms reported Musculoskeletal: No symptoms reported Skin: See HPI Hematologic/Lymphatic: No symptoms reported Neurological/Psychological: No symptoms reported Physical Exam - Vital signs Interpretation: Normal - General General appearance: Appears well, Alert In distress: None - HEENT Head: Normocephalic, Atraumatic Eyes: Normal Pupils: PERRL - Respiratory Respiratory status: No respiratory distress Chest status: Nontender Breath sounds: Normal Chest palpation: Normal - Cardiovascular Rhythm: Regular Heart sounds: Normal auscultation Murmur: No - Abdominal Inspection: Normal Distension: No distension Bowel sounds: Normal Tenderness: Nontender Organomegaly: No organomegaly - Back Back: Normal, Nontender - Extremities General upper extremity: Normal inspection, Nontender, Normal color, Normal ROM , Normal temperature General lower extremity: Normal inspection, Nontender, Normal color, Normal ROM , Normal temperature, Normal weight bearing. No: Kimo's sign - Neurological Neuro grossly intact: Yes Cognition: Normal Orientation: AAOx4 Anita Coma Scale Eye Opening: Spontaneous [place] Coma Scale Verbal: Oriented Anita Coma Scale Motor: Obeys Commands Anita Coma Scale Total: 15 Speech: Normal Motor strength normal: LUE, RUE, LLE, RLE Sensory: Normal - Psychological Associated symptoms: Normal affect, Normal mood - Skin Skin Temperature: Warm Skin Moisture: Dry Skin Color: Normal Skin irregularity: other - There is one area on each breast with a tender lump suggestive of plugged ducts, no induration, fluctuance, no discharge from the nipple. Normal examination otherwise. FELA Smith present during examination. Course - Re-evaluation Re-evalutation: Examination and symptoms are suggestive of mastitis with reported fever concerning for infected mastitis. No tachycardia, hypotension, patient is nontoxic in appearance. Placing on Keflex, giving recommendations for treatment of this, discussed follow-up and return precautions, patient states understanding and agreement. Discharge - Discharge Clinical Impression: Mastitis Condition: Stable Disposition: HOME, SELF-CARE Additional Instructions: Your examination and symptoms are consistent with mastitis with secondary infection. Take the Keflex antibiotic as prescribed, take the naproxen, if needed take the stronger pain medication as well (especially to help you sleep). Continue pumping regularly, apply cold compresses. Follow-up with your primary care provider. Return to the emergency department for any concerning or worsening symptoms including developing redness or swelling, spreading redness, spiking fever, shaking chills, or any other concerning symptoms. Prescriptions: Cephalexin Monohydrate [Keflex 500 mg Capsule] 500 mg PO QID #28 capsule Naproxen [Naprosyn 375 Mg Tablet] 375 mg PO BID #20 tablet Forms: Return to Work Referrals: NEGRITO GAYLE MD [Primary Care Provider] - Follow up as needed
[2017-06-07 04:56] VITALS: BP 121/80
== END 2017-06-07 05:31 | disposition home or self-care (01) ==
LOC: ER 04:24
DX: N61.0 Mastitis without abscess (principal); N64.4 Mastodynia; Z88.0 Allergy status to penicillin; Z88.3 Allergy status to other anti-infective agents
CPT/HCPCS: 99283

== ENCOUNTER 2018-06-05 18:55 | Emergency (ER) | payer MEDICAID, OTHER ==
[2018-06-05 20:57] LABS: ABSOLUTE BASOPHILS # (AUTO) 0.1 10^3/uL (0.0-0.2); ABSOLUTE LYMPHOCYTES (AUTO) 1.4 10^3/uL (0.5-4.7); ABSOLUTE NEUT (AUTO) 16.6 10^3/uL (1.7-8.2); BASOPHILS % (AUTO) 0.4 % (0-2); EOSINOPHILS % (AUTO) 0.1 % (0-6); HEMATOCRIT 44.3 % (36.0-47.0); HEMOGLOBIN 15.8 g/dL (12.0-15.5); LYMPHOCYTES % (AUTO) 7.6 % (13-45); MEAN CORPUSCULAR HEMOGLOBIN 30.8 pg (27.0-33.4); MEAN CORPUSCULAR HGB CONC 35.7 g/dL (32.0-36.0); MEAN CORPUSCULAR VOLUME 87 fl (80-97); MONOCYTES % (AUTO) 5.3 % (3-13); PLATELET COUNT 364 10^3/uL (150-450); RED BLOOD COUNT 5.12 10^6/uL (3.72-5.28); RED CELL DISTRIBUTION WIDTH 13.1 % (11.5-14.0); SEGMENTED NEUTROPHILS % (AUTO) 86.6 % (42-78); TOTAL CELLS COUNTED % (AUTO) 100 %; WHITE BLOOD COUNT 19.1 10^3/uL (4.0-10.5)
[2018-06-05 21:12] LABS: APPEARANCE,URINE SLIGHTLY-CLOUDY; BILIRUBIN,URINE NEGATIVE (NEGATIVE); COLOR,URINE YELLOW; GLUCOSE, URINE NEGATIVE (NEGATIVE); KETONES,URINE NEGATIVE (NEGATIVE); LEUKOCYTE ESTERASE,URINE NEGATIVE (NEGATIVE); NITRITE,URINE NEGATIVE (NEGATIVE); PROTEIN,URINE NEGATIVE (NEGATIVE); URINE SPECIFIC GRAVITY 1.012
[2018-06-05] MEDS ORDERED: ONDANSETRON 4 MG TAB.RAPDIS PO ONE (23:10)
--- NOTE | 2018-06-05 23:13 | ER Document Report ---
ED General - General Chief Complaint: Vaginal Bleeding Stated Complaint: ABDOMINAL CRAMPING, VAGINAL SPOTTING Time Seen by Provider: 06/05/18 23:02 TRAVEL OUTSIDE OF THE [place] IN LAST 30 DAYS: No - HPI Notes: Patient is a 33-year-old female approximately 17 weeks who presents to the ED complaining of vaginal cramping and spotting that began at 1600 today. Patient states that she has not had any previous miscarriage or . Patient states that she did have nausea and an episode of vomiting in the waiting room. Patient states that she is also had an occasional dry nonproductive cough and 4-5 episodes of diarrhea today. She is otherwise urinating normally. No other significant past medical history that she is aware of. Denies any headache, fever, neck pain, URI, sore throat, chest pain, palpitations, syncope, cough, shortness of breath, wheeze, dyspnea, urinary retention, dysuria, hematuria, back pain, loss of control of bowel or bladder, numbness/tingling, saddle anesthesia, muscle paralysis/weakness, or rash. - Related Data Allergies/Adverse Reactions: amoxicillin [Amoxicillin] Allergy (Verified 06/05/18 18:57) ciprofloxacin [From Cipro] Allergy (Verified 06/05/18 18:57) ciprofloxacin HCl [From Cipro] Allergy (Verified 06/05/18 18:57) clavulanic acid [From Augmentin] Allergy (Verified 06/05/18 18:57) Penicillins Allergy (Verified 06/05/18 18:57) Past Medical History - General Last Menstrual Period: 01/2018 - Social History Smoking Status: Never Smoker Frequency of alcohol use: None Drug Abuse: None Family History: Reviewed & Not Pertinent Patient has suicidal ideation: No Patient has homicidal ideation: No Neurological Medical History: Reports: Hx Seizures Renal/ Medical History: Denies: Hx Peritoneal Dialysis Musculoskeletal Medical History: Reports Hx Musculoskeletal Trauma Psychiatric Medical History: Reports: Hx Anxiety Past Surgical History: Reports: Hx Appendectomy, Hx Breast Surgery - augmentation, Hx Orthopedic Surgery - elbow surgery left wrist - Immunizations Immunizations up to date: Yes Hx Diphtheria, Pertussis, Tetanus Vaccination: Yes Review of Systems - Review of Systems -: Yes All other systems reviewed and negative Physical Exam - Vital signs Vitals: Temp Pulse Resp BP Pulse Ox 97.9 F 83 20 122/73 100 06/05/18 19:14 09/23/18 19:14 06/05/18 19:14 06/05/18 19:14 06/05/18 19:14 - Notes Notes: PHYSICAL EXAMINATION: GENERAL: Well-appearing, well-nourished and in no acute distress. LUNGS: Breath sounds clear to auscultation bilaterally and equal. No wheezes rales or rhonchi. HEART: Regular rate and rhythm without murmurs, rubs, gallops. ABDOMEN: Soft, nondistended abdomen. No guarding, no rebound. No masses appreciated. Normal bowel sounds present. No CVA tenderness bilaterally. + mild tenderness to the mid lower abd. Musculoskeletal: FROM to passive/active. Strength 5+/5. Extremities: No cyanosis, clubbing, or edema b/l. Peripheral pulses 2+. Capillary refill less than 3 seconds. NEUROLOGICAL: Normal speech, normal gait. PSYCH: Normal mood, normal affect. SKIN: Warm, Dry, normal turgor, no rashes or lesions noted. Course - Re-evaluation Re-evalutation: 06/06/18 00:40 Patient is an afebrile, well-hydrated, 33-year-old female who presents to the ED with abdominal cramping and vaginal spotting with an intrauterine at 17 weeks, acute URI, diarrhea. Vitals are acceptable without any significant tachycardia, tachypnea, or hypoxia. Patient did have lower midline abdominal tenderness on exam which was mild. There was no tenderness at McBurney point. Patient is able to tolerate p.o. at this time and is nontoxic- appearing. Her transabdominal OB ultrasound was unremarkable for acute pathology. CBC did show leukocytosis with left shift. Urinalysis was unremarkable. I do suspect that her URI and diarrhea most likely viral. Patient has had leukocytosis in the past and a previous . I did review with Dr. Victor who recommends f/u tomorrow with OBGYN, no other work up or treatment at this time. Pt did decline a CXR. I will send her home with a Zofran dispense pack. Recheck with your JOB PLACEMENT SPECIALIST tomorrow. Return to the ED with any worsening/concerning symptoms otherwise as reviewed in discharge. Patient is in agreement. - Vital Signs Vital signs: Temp Pulse Resp BP Pulse Ox 97.6 F 83 16 92/45 L 99 06/06/18 00:17 06/06/18 00:17 06/06/18 00:17 06/06/18 00:17 06/06/18 00:17 - Laboratory Result Diagrams: 06/05/18 20:42 Laboratory results interpreted by me: 06/05/18 06/05/18 06/05/18 20:42 20:42 20:42 WBC 19.1 H Hgb 15.8 H Seg Neutrophils % 86.6 H Lymphocytes % 7.6 L Absolute Neutrophils 16.6 H Beta HCG, Quant 88598.00 H Urine Urobilinogen 2.0 H Discharge - Discharge Clinical Impression: Vaginal bleeding during , Abdominal pain, lower Condition: Stable Disposition: HOME, SELF-CARE Instructions: Abdominal Pain ([facility]), Antinausea Medication ([facility]) Additional Instructions: Maintain fluid intake Proper hygenic technique Keep the skin clean Tylenol as needed Healthy diet Nausea medication as needed Return immediately if symptoms worsen F/u with your PCM/OBGYN tomorrow* Return to the ED with any development of DRIVER/fever, trouble with vision, eye redness, worsening pain, urethral discharge, urinary retention, blood in the urine, flank pain, abdominal pain, n/v, Chest Pain, shortness of breath, joint pains, trouble breathing, or any other worsening/concerning symptoms as needed otherwise. Referrals: NEGRITO GAYLE MD [Primary Care Provider] - Follow up as needed [facility]AC[facility] SPECIALIST [Provider Group] - Follow up tomorrow
--- NOTE | 2018-06-05 23:54 | RADIOLOGY REPORT (SQ) ---
EXAM DESCRIPTION: US LIMITED COMPLETED DATE/TME: 06/05/2018 22:30 CLINICAL HISTORY: 33 years, Female, bleeding + FINDINGS: Single viable IUP of 17 weeks and zero days. heart rate 137 bpm. RADHA is within normal limits at 9.8 cm.
[2018-06-06] MEDS ORDERED: ONDANSETRON ODT 4 MG TAB (6 TAB/ER DISP) PO PRN (00:44)
[2018-06-06 00:51] VITALS: BP 109/63
== END 2018-06-06 01:04 | disposition home or self-care (01) ==
LOC: ER 18:55
DX: O26.852 Spotting complicating pregnancy, second trimester (principal); O26.892 Other specified pregnancy related conditions, second trimester; R10.2 Pelvic and perineal pain; R19.7 Diarrhea, unspecified; R05 Cough; O99.512 Diseases of the respiratory system complicating pregnancy, second trimester; J06.9 Acute upper respiratory infection, unspecified; O21.9 Vomiting of pregnancy, unspecified; Z3A.17 17 weeks gestation of pregnancy; Z88.0 Allergy status to penicillin; Z88.1 Allergy status to other antibiotic agents; Z90.49 Acquired absence of other specified parts of digestive tract
CPT/HCPCS: 99284; 86900; 86901; 36415; 84702; 85025; 81001; 76815; S0119

== ENCOUNTER 2019-02-28 20:10 | Emergency (ER) | payer OTHER ==
[2019-02-28] MEDS ORDERED: NORMAL SALINE 1000 ML 1,000 ML IV ONE (20:50)
--- NOTE | 2019-02-28 20:50 | ER Document Report ---
ED Neuro Symptoms/Deficit - General Chief Complaint: Facial Droop Stated Complaint: FACIAL NUMBNESS Time Seen by Provider: 02/28/19 20:40 Primary Care Provider: NEGRITO GAYLE MD [Primary Care Provider] - Follow up as needed Notes: This is a 33-year-old female patient emergency department chief complaint of fac ial pain and pain in her face. Patient was seen at a another hospital last night for a migraine. Received Haldol IV and Toradol. States that today she is having some spasticity and difficulty with facial contortions. Hurts to swallow. Neck feels very stiff as well. Denies any fever, chills, sweats. Denies any headache at this time. TRAVEL OUTSIDE OF THE [place] IN LAST 30 DAYS: No - HPI Patient complains to provider of: Facial Droop, Paralysis Onset: This morning Symptoms are: Constant Duration: Continues in ED Quality of pain: Achy Severity: Moderate Pain Level: 2 - Related Data Allergies/Adverse Reactions: amoxicillin [Amoxicillin] Allergy (Verified 06/05/18 18:57) ciprofloxacin [From Cipro] Allergy (Verified 06/05/18 18:57) ciprofloxacin HCl [From Cipro] Allergy (Verified 06/05/18 18:57) clavulanic acid [From Augmentin] Allergy (Verified 06/05/18 18:57) Penicillins Allergy (Verified 06/05/18 18:57) Past Medical History - General Information source: Patient - Social History Smoking Status: Never Smoker Frequency of alcohol use: None Drug Abuse: None Lives with: Spouse/Significant other Family History: Reviewed & Not Pertinent Neurological Medical History: Reports: Hx Seizures Renal/ Medical History: Denies: Hx Peritoneal Dialysis Musculoskeletal Medical History: Reports Hx Musculoskeletal Trauma Psychiatric Medical History: Reports: Hx Anxiety Past Surgical History: Reports: Hx Appendectomy, Hx Breast Surgery - augmentation, Hx Orthopedic Surgery - elbow surgery left wrist - Immunizations Immunizations up to date: Yes Hx Diphtheria, Pertussis, Tetanus Vaccination: Yes Review of Systems - Review of Systems Notes: Constitutional: denies: Chills, Diaphoresis, Fever, Malaise, Weakness EENT: denies: Eye discharge, Blurred vision, Tearing, Double vision, Nose congestion, Nose discharge, Throat swelling, Mouth pain Cardiovascular: denies: Palpitations, Heart racing, Orthopnea, Dyspnea, Chest pain Respiratory: denies: Cough, Hurts to breathe, Wheezing, Shortness of breath Gastrointestinal: denies: Abdominal pain, Diarrhea, Nausea, Vomiting, Black stools, bright red blood in stool Genitourinary: denies: Burning, Dysuria, Discharge, Frequency, Flank pain, Hematuria Musculoskeletal: denies: Joint pain, Joint swelling, Muscle pain, Muscle stiffness, back pain Hematologic/Lymphatic: denies: Anemia, Easy bleeding, Easy bruising, Blood clots Neurological/Psychological: denies: Confusion, Dementia, Depression, Loss of consciousness. facial pain/contortions Skin: No lesions, no masses, no skin breakdown, no abscesses Physical Exam - Vital signs Vitals: Temp Resp 97.8 F 17 02/28/19 20:16 02/28/19 20:16 Interpretation: Normal - General General appearance: Appears well, Alert - HEENT Head: Normocephalic, Atraumatic Eyes: Normal Pupils: PERRL Notes: Patient appears to have a little bit of rigidity to her jaw. She is able to open her mouth. She has no nuchal rigidity but does demonstrate some spasticity of her sternocleidomastoid muscles. Swallowing is intact. - Respiratory Respiratory status: No respiratory distress Chest status: Nontender Breath sounds: Normal Chest palpation: Normal - Cardiovascular Rhythm: Regular Heart sounds: Normal auscultation Murmur: No - Abdominal Inspection: Normal Distension: No distension Bowel sounds: Normal Tenderness: Nontender Organomegaly: No organomegaly - Back Back: Normal, Nontender - Extremities General upper extremity: Normal inspection, Nontender, Normal color, Normal ROM, Normal temperature General lower extremity: Normal inspection, Nontender, Normal color, Normal ROM, Normal temperature, Normal weight bearing. No: Kimo's sign - Neurological Neuro grossly intact: Yes Cognition: Normal Orientation: AAOx4 [place] Coma Scale Eye Opening: Spontaneous [place] Coma Scale Verbal: Oriented [place] Coma Scale Motor: Obeys Commands [place] Coma Scale Total: 15 Speech: Normal Motor strength normal: LUE, RUE, LLE, RLE Sensory: Normal - Psychological Associated symptoms: Normal affect, Normal mood - Skin Skin Temperature: Warm Skin Moisture: Dry Skin Color: Normal Course - Re-evaluation Re-evalutation: 02/28/19 23:38 Laboratory 02/28/19 02/28/19 02/28/19 20:19 20:22 20:22 WBC 7.9 RBC 4.77 Hgb 13.2 Hct 39.3 MCV 82 MCH 27.6 MCHC 33.5 RDW 14.5 H Plt Count 422 Seg Neutrophils % 69.8 Lymphocytes % 22.3 Monocytes % 7.2 Eosinophils % 0.2 Basophils % 0.5 Absolute Neutrophils 5.5 Absolute Lymphocytes 1.8 Absolute Monocytes 0.6 Absolute Eosinophils 0.0 Absolute Basophils 0.0 VBG pH VBG pCO2 VBG HCO3 VBG Base Excess Sodium 136.6 L Potassium 4.2 Chloride 102 Carbon Dioxide 24 Anion Gap 11 BUN 10 Creatinine 0.79 Est GFR ( Amer) > 60 Est GFR (Non-Af Amer) > 60 Glucose 135 H POC Glucose 125 H Calcium 9.7 Total Bilirubin 1.2 Direct Bilirubin 0.3 Neonat Total Bilirubin Not Reportable Neonat Direct Bilirubin Not Reportable Neonat Indirect Bili Not Reportable AST 26 ALT 31 Alkaline Phosphatase 54 Creatine Kinase 65 Total Protein 7.4 Albumin 4.7 02/28/19 20:22 WBC RBC Hgb Hct MCV MCH MCHC RDW Plt Count Seg Neutrophils % Lymphocytes % Monocytes % Eosinophils % Basophils % Absolute Neutrophils Absolute Lymphocytes Absolute Monocytes Absolute Eosinophils Absolute Basophils VBG pH 7.40 VBG pCO2 41.8 VBG HCO3 25.5 VBG Base Excess 0.6 Sodium Potassium Chloride Carbon Dioxide Anion Gap BUN Creatinine Est GFR ( Amer) Est GFR (Non-Af Amer) Glucose POC Glucose Calcium Total Bilirubin Direct Bilirubin Neonat Total Bilirubin Neonat Direct Bilirubin Neonat Indirect Bili AST ALT Alkaline Phosphatase Creatine Kinase Total Protein Albumin Head CT 02/28/19 20:48 IMPRESSION: No acute intracranial findings. Based on patient's history of getting some Haldol I suspect that patient could be having some clonus and rigidity due to that medication. I empirically gave her some Cogentin IM and this did help with her symptoms. She is feeling much better at this time. No headache. Is refusing any other medications other than the Ativan. More than likely is her medication symptoms and she can likely be discharged shortly. 03/01/19 00:21 Repeat evaluation performed. Most symptoms are now resolved. - Vital Signs Vital signs: Temp Pulse Resp BP Pulse Ox 98.6 F 79 18 106/64 97 03/01/19 01:07 03/01/19 01:07 03/01/19 01:07 03/01/19 01:07 03/01/19 01:07 - Laboratory Result Diagrams: 02/28/19 20:22 02/28/19 20:22 Laboratory results interpreted by me: 02/28/19 02/28/19 02/28/19 20:19 20:22 20:22 RDW 14.5 H Sodium 136.6 L Glucose 135 H POC Glucose 125 H - EKG Interpretation by Me EKG shows normal: Sinus rhythm, [place], Intervals, QRS Complexes, ST-T Waves Additional EKG results interpreted by me: 02/28/19 23:40 QTC 498 Discharge - Discharge Clinical Impression: Tardive dyskinesia Condition: Good Disposition: HOME, SELF-CARE Instructions: Dystonic Reaction to Medication ([facility]) Additional Instructions: More than likely her symptoms were caused from the Haldol injection you received. I recommend against antipsychotic medications if at all possible as you seem to be quite sensitive to them. I am recommending that you stay home tomorrow. There is a possibility that this could return in the next 24 hours but unlikely. You may benefit from another dose of Cogentin in the morning. Please get plenty of rest. Drink plenty of fluids. In the event that you develop worsening symptoms, fever and a headache with neck stiffness or other concerns please return or see a provider as soon as possible for repeat evaluation. Prescriptions: Alprazolam 0.25 mg PO BID PRN 3 Days #6 tablet PRN Reason: Benztropine Mesylate [Cogentin 1 mg Tablet] 1 mg PO DAILY 2 Days #2 tablet Forms: Return to Work Referrals: NEGRITO GAYLE MD [Primary Care Provider] - Follow up as needed
[2019-02-28] MEDS ORDERED: BENZTROPINE MESYLATE INJ 2 MG/2 ML AMPULE IM ONE (21:00)
--- NOTE | 2019-02-28 21:30 | RADIOLOGY REPORT (SQ) ---
CT HEAD WITHOUT IV CONTRAST HISTORY: Facial weakness, headache. COMPARISON: 06/18/2014 TECHNIQUE: CT scan of the brain without IV contrast. This exam was performed according to our departmental dose-optimization program, which includes automated exposure control, adjustment of the mA and/or kV according to patient size and/or use of iterative reconstruction technique. FINDINGS: The ventricles, cisterns, and sulci are age-appropriate. No evidence of acute infarction, intracranial hemorrhage, extra-axial fluid collection, or midline shift. No air-fluid levels are seen in the paranasal sinuses to suggest acute sinusitis. No depressed skull fracture. Prior posterior parietal craniotomy is present. IMPRESSION: No acute intracranial findings.
[2019-02-28 21:33] LABS: VENOUS BLOOD BASE EXCESS 0.6 mmol/L; VENOUS BLOOD HCO3 25.5 mmol/L (20-32); VENOUS BLOOD PCO2 41.8 mmHg (35-63); VENOUS BLOOD PH 7.4 (7.30-7.42)
[2019-02-28 21:39] LABS: ABSOLUTE LYMPHOCYTES (AUTO) 1.8 10^3/uL (0.5-4.7); ABSOLUTE MONOCYTES (AUTO) 0.6 10^3/uL (0.1-1.4); ABSOLUTE NEUT (AUTO) 5.5 10^3/uL (1.7-8.2); BASOPHILS % (AUTO) 0.5 % (0-2); EOSINOPHILS % (AUTO) 0.2 % (0-6); HEMATOCRIT 39.3 % (36.0-47.0); HEMOGLOBIN 13.2 g/dL (12.0-15.5); LYMPHOCYTES % (AUTO) 22.3 % (13-45); MEAN CORPUSCULAR HEMOGLOBIN 27.6 pg (27.0-33.4); MEAN CORPUSCULAR HGB CONC 33.5 g/dL (32.0-36.0); MEAN CORPUSCULAR VOLUME 82 fl (80-97); MONOCYTES % (AUTO) 7.2 % (3-13); PLATELET COUNT 422 10^3/uL (150-450); RED BLOOD COUNT 4.77 10^6/uL (3.72-5.28); RED CELL DISTRIBUTION WIDTH 14.5 % (11.5-14.0); SEGMENTED NEUTROPHILS % (AUTO) 69.8 % (42-78); TOTAL CELLS COUNTED % (AUTO) 100 %; WHITE BLOOD COUNT 7.9 10^3/uL (4.0-10.5)
[2019-02-28] MEDS ORDERED: LORAZEPAM INJ 2 MG/1 ML VIAL IV PRN (21:45)
[2019-02-28 21:46] LABS: ALANINE AMINOTRANSFERASE 31 U/L (9-52); ALBUMIN 4.7 g/dL (3.5-5.0); ALKALINE PHOSPHATASE 54 U/L (38-126); ANION GAP 11 (5-19); ASPARTATE AMINO TRANSFERASE 26 U/L (14-36); BILIRUBIN,DIRECT 0.3 mg/dL (0.0-0.4); BILIRUBIN,TOTAL 1.2 mg/dL (0.2-1.3); BLOOD UREA NITROGEN 10 mg/dL (7-20); CALCIUM 9.7 mg/dL (8.4-10.2); CARBON DIOXIDE 24 mmol/L (22-30); CHLORIDE 102 mmol/L (98-107); CREATINE KINASE 65 U/L (30-135); GLUCOSE 135 mg/dL (75-110); POTASSIUM 4.2 mmol/L (3.6-5.0); SODIUM 136.6 mmol/L (137-145); TOTAL PROTEIN 7.4 g/dL (6.3-8.2)
[2019-02-28] MEDS ORDERED: KETOROLAC TROMETHAMINE INJ/PF 30 MG/1 ML SDV IV ONE (21:46)
[2019-03-01 00:26] LABS: APPEARANCE,URINE CLEAR; BILIRUBIN,URINE NEGATIVE (NEGATIVE); COLOR,URINE YELLOW; GLUCOSE, URINE NEGATIVE (NEGATIVE); KETONES,URINE NEGATIVE (NEGATIVE); LEUKOCYTE ESTERASE,URINE NEGATIVE (NEGATIVE); NITRITE,URINE NEGATIVE (NEGATIVE); PROTEIN,URINE NEGATIVE (NEGATIVE); URINE SPECIFIC GRAVITY 1.009; UROBILINOGEN,URINE NEGATIVE mg/dL (<2.0)
[2019-03-01 00:48] LABS: URINE AMPHETAMINES SCREEN NEGATIVE; URINE BENZODIAZEPINES SCREEN NEGATIVE; URINE COCAINE SCREEN NEGATIVE; URINE MARIJUANA (THC) SCREEN NEGATIVE; URINE METHADONE SCREEN NEGATIVE; URINE PHENCYCLIDINE SCREEN NEGATIVE
[2019-03-01 00:55] LABS: URINE BARBITURATES SCREEN NEGATIVE
[2019-03-01 01:08] VITALS: BP 106/64
--- NOTE | 2019-03-01 07:55 | EKG REPORT ---
SEVERITY:- BORDERLINE ECG - SINUS RHYTHM BORDERLINE PROLONGED QT INTERVAL : Confirmed by: Flakita Puente MD 01-Mar-2019 07:55:09
== END 2019-03-01 01:09 | disposition home or self-care (01) ==
LOC: ER 20:10
DX: G24.01 Drug induced subacute dyskinesia (principal); Z88.0 Allergy status to penicillin; Z88.3 Allergy status to other anti-infective agents
CPT/HCPCS: 93005; 99284; 96372; 96361; 96374; 36415; 82962; 82550; 85025; 81025; 80053; 81001; 80307; 82803; 70450; 93010; J0515; J2060; J7030